=== PATIENT | female | born 1955 | race Caucasian/White ===

== ENCOUNTER 2020-05-11 15:34 | Observation (INO) | payer BC ==
[2020-05-11] MEDS ORDERED: HEPARIN SODIUM,PORCINE 5,000 UNIT/ML 1 ML VIAL IV PRN (15:49)
[2020-05-11] MEDS ORDERED: HEPARIN SODIUM,PORCINE 10,000 UNIT/ML 1 ML VIAL IV ONE (15:49)
--- NOTE | 2020-05-11 16:15 | ED ---
General Adult HPI - General Chief complaint: Shortness of Breath Stated complaint: pulmonary embolism Time Seen by Provider: 05/11/20 15:46 Source: patient Mode of arrival: ambulatory Limitations: no limitations - History of Present Illness Initial comments: Dictation was produced using [employer] dictation software. please excuse any grammatical, word or spelling errors. This patient was cared for during a federal and state declared state of emerg ency secondary to Covid 19 Chief Complaint: 64-year-old female with past medical history of glaucoma presents with instruction from primary care physician come to the emergency department for pulmonary embolus History of Present Illness: 64-year-old female she initially saw her primary c are physician last week. Patient had labs and imaging studies performed. She did get a blood test with positive d-dimer last week. She was started on request an aspirin. She was sent home pending CTA that was done today. Patient finally had the CT angios performed showing bilateral pulmonary emboli. She did receive presented to PCP for shortness of breath. She does not have any history of PEs. She does have any recent extended travel. No history of cancer. Patient states that she feels well at this time. Also found that patient had large hiatal hernia. At rest patient feels well. The ROS documented in this emergency department record has been reviewed and confirmed by me. Those systems with pertinent positive or negative responses have been documented in the HPI. All other systems are other negative and/or noncontributory. PHYSICAL EXAM: General Impression: Alert and oriented x3, not in acute distress HEENT: Normocephalic atraumatic, extra-ocular movements intact, pupils equal and reactive to light bilaterally, mucous membranes moist. Cardiovascular: Heart regular rate and rhythm Chest: Able to complete full sentences, no retractions, no tachypnea Abdomen: abdomen soft, non-tender, non-distended, no organomegaly Musculoskeletal: Pulses present and equal in all extremities, no peripheral edema Motor: no focal deficits noted Neurological: CN II-XII grossly intact, no focal motor or sensory deficits noted Skin: Intact with no visualized rashes Psych: Normal affect and mood ED course: 64-year-old female with recent diagnosis of pulmonary embolus signs upon arrival are within acceptable limits. Patient's old. Bedside. She does not appear dyspneic. Hemodynamically stable. Received a call from Dr. Law who is patient's primary care physician. He requested that patient be admitted. He request that patient get ultrasounds of the bilateral lower extremities, CT of the abdomen and pelvis with contrast for evaluation of carcinoma. He also requests that Dr. Damon be consulted for evaluation hiatal hernia and Dr. Roberto be consulted for assistance with managing pulmonary embolus.Laboratory evaluation obtained. CBC, coag panel, metabolic panel unremarkable. Troponin is negative. Chest x-ray shows right upper lobe lung mass of unclear signific ance or etiology. CT of the abdomen and pelvis shows no suspicious masses. There are scattered small lymph nodes. There is a hypodense area in the mid spleen. Multiple cysts in the liver. Venous Doppler study of the bilateral lower extremities shows no DVTs. Patient will be admitted to the Dr. [place] service. Patient started on heparin. Patient is stable medical condition. EKG interpretation: Ventricular rate 73, normal sinus rhythm, NV interval 124, QRS 78, QTc 453. No NV prolongation, no QTC prolongation, no ST or T-wave changes noted. . Overall, this EKG is unremarkable - Related Data Allergies Allergy/AdvReac Type Severity Reaction Status Date / Time hydromorphone [From Dilaudid] Allergy Rash/Hives Verified 05/11/20 15:38 Penicillins Allergy Rash/Hives Verified 05/11/20 15:38 Sulfa (Sulfonamide Allergy Rash/Hives Verified 05/11/20 15:38 Antibiotics) Review of Systems ROS Statement: Those systems with pertinent positive or pertinent negative responses have been documented in the HPI. ROS Other: All systems not noted in ROS Statement are negative. Past Medical History Additional Past Medical History / Comment(s): wide angle glaucoma History of Any Multi-Drug Resistant Organisms: None Reported Past Surgical History: Orthopedic Surgery Additional Past Surgical History / Comment(s): craniotomy, right facial fract ures, right shoulder repair, left elbow. Smoking Status: Never smoker Past Alcohol Use History: Occasional Past Drug Use History: None Reported General Exam Limitations: no limitations Course Vital Signs 05/11/20 15:39 Temperature 98.2 F Pulse Rate 72 Respiratory 20 Rate Blood Pressure 156/75 O2 Sat by Pulse 98 Oximetry Medical Decision Making - Lab Data Result diagrams: 05/11/20 16:12 05/11/20 16:12 Lab Results 05/11/20 05/11/20 05/11/20 Range/Units 16:12 16:12 16:12 WBC 9.6 (3.8-10.6) k/uL RBC 4.75 (3.80-5.40) m/uL Hgb 13.5 (11.4-16.0) gm/dL Hct 41.3 (34.0-46.0) % MCV 86.9 (80.0-100.0) fL MCH 28.3 (25.0-35.0) pg MCHC 32.6 (31.0-37.0) g/dL RDW 13.5 (11.5-15.5) % Plt Count 287 (150-450) k/uL Neutrophils % 63 % Lymphocytes % 28 % Monocytes % 4 % Eosinophils % 3 % Basophils % 1 % Neutrophils # 6.0 (1.3-7.7) k/uL Lymphocytes # 2.7 (1.0-4.8) k/uL Monocytes # 0.4 (0-1.0) k/uL Eosinophils # 0.3 (0-0.7) k/uL Basophils # 0.1 (0-0.2) k/uL PT 9.4 (9.0-12.0) sec INR 0.9 (<1.2) APTT 24.4 (22.0-30.0) sec Sodium 136 L (137-145) mmol/L Potassium 3.9 (3.5-5.1) mmol/L Chloride 105 (98-107) mmol/L Carbon Dioxide 21 L (22-30) mmol/L Anion Gap 10 mmol/L BUN 13 (7-17) mg/dL Creatinine 0.80 (0.52-1.04) mg/dL Est GFR (CKD-EPI)AfAm >90 (>60 ml/min/1.73 sqM) Est GFR (CKD-EPI)NonAf 78 (>60 ml/min/1.73 sqM) Glucose 94 (74-99) mg/dL Plasma Lactic Acid Jae (0.7-2.0) mmol/L Calcium 9.4 (8.4-10.2) mg/dL Magnesium 2.0 (1.6-2.3) mg/dL Total Bilirubin 0.4 (0.2-1.3) mg/dL AST 28 (14-36) U/L ALT 18 (4-34) U/L Alkaline Phosphatase 110 (38-126) U/L Troponin I (0.000-0.034) ng/mL Total Protein 7.2 (6.3-8.2) g/dL Albumin 4.5 (3.5-5.0) g/dL 05/11/20 05/11/20 Range/Units 16:12 16:12 WBC (3.8-10.6) k/uL RBC (3.80-5.40) m/uL Hgb (11.4-16.0) gm/dL Hct (34.0-46.0) % MCV (80.0-100.0) fL MCH (25.0-35.0) pg MCHC (31.0-37.0) g/dL RDW (11.5-15.5) % Plt Count (150-450) k/uL Neutrophils % % Lymphocytes % % Monocytes % % Eosinophils % % Basophils % % Neutrophils # (1.3-7.7) k/uL Lymphocytes # (1.0-4.8) k/uL Monocytes # (0-1.0) k/uL Eosinophils # (0-0.7) k/uL Basophils # (0-0.2) k/uL PT (9.0-12.0) sec INR (<1.2) APTT (22.0-30.0) sec Sodium (137-145) mmol/L Potassium (3.5-5.1) mmol/L Chloride (98-107) mmol/L Carbon Dioxide (22-30) mmol/L Anion Gap mmol/L BUN (7-17) mg/dL Creatinine (0.52-1.04) mg/dL Est GFR (CKD-EPI)AfAm (>60 ml/min/1.73 sqM) Est GFR (CKD-EPI)NonAf (>60 ml/min/1.73 sqM) Glucose (74-99) mg/dL Plasma Lactic Acid Jae 1.0 (0.7-2.0) mmol/L Calcium (8.4-10.2) mg/dL Magnesium (1.6-2.3) mg/dL Total Bilirubin (0.2-1.3) mg/dL AST (14-36) U/L ALT (4-34) U/L Alkaline Phosphatase (38-126) U/L Troponin I <0.012 (0.000-0.034) ng/mL Total Protein (6.3-8.2) g/dL Albumin (3.5-5.0) g/dL Disposition Clinical Impression: Pulmonary emboli Disposition: ADMITTED IP TO THIS HOSP Condition: Fair Referrals: Leonel Montana MD [Primary Care Provider] - 1-2 days Decision Time: 17:20
[2020-05-11] MEDS: HEPARIN SOD,PORK IN 0.45% NACL 25,000 UNIT in 0.45% NACL 1 250ML.BAG IV SCH (16:17)
[2020-05-11 16:18] LABS: Basophils # (A) 0.1 k/uL (0-0.2); Basophils % (A) 1 %; Eosinophils # (A) 0.3 k/uL (0-0.7); Eosinophils % (A) 3 %; HCT 41.3 % (34.0-46.0); HGB 13.5 gm/dL (11.4-16.0); Lymphocytes # (A) 2.7 k/uL (1.0-4.8); Lymphocytes % (A) 28 %; MCH 28.3 pg (25.0-35.0); MCHC 32.6 g/dL (31.0-37.0); MCV 86.9 fL (80.0-100.0); Mean Platelet Volume 8.6; Monocytes # (A) 0.4 k/uL (0-1.0); Monocytes % (A) 4 %; Neutrophils % (A) 63 %; Platelet Count 287 k/uL (150-450); RBC 4.75 m/uL (3.80-5.40); RDW 13.5 % (11.5-15.5); WBC 9.6 k/uL (3.8-10.6)
[2020-05-11 16:27] LABS: ALT 18 U/L (4-34); AST 28 U/L (14-36); African American GFR (CKD) >90 (>60 ml/min/1.73 sqM); Albumin 4.5 g/dL (3.5-5.0); Alkaline Phosphatase 110 U/L (38-126); Anion Gap 10 mmol/L; Blood Urea Nitrogen 13 mg/dL (7-17); Calcium 9.4 mg/dL (8.4-10.2); Carbon Dioxide 21 mmol/L (22-30); Chloride 105 mmol/L (98-107); Glucose 94 mg/dL (74-99); INR 0.9 (<1.2); Non-African American GFR(CKD) 78 (>60 ml/min/1.73 sqM); Partial Thromboplastin Time 24.4 sec (22.0-30.0); Potassium 3.9 mmol/L (3.5-5.1); Prothrombin Time 9.4 sec (9.0-12.0); Sodium 136 mmol/L (137-145); Total Bilirubin 0.4 mg/dL (0.2-1.3); Total Protein 7.2 g/dL (6.3-8.2)
--- NOTE | 2020-05-11 16:52 | US ---
EXAMINATION TYPE: US venous doppler duplex LE BI DATE OF EXAM: 05/11/2020 4:32 PM COMPARISON: NONE CLINICAL HISTORY: evaluate for DVT. PE SIDE PERFORMED: Bilateral TECHNIQUE: The lower extremity deep venous system is examined utilizing real time linear array sonog airam with graded compression, doppler sonography and color-flow sonography. VESSELS IMAGED: External Iliac Vein (EIV) Common Femoral Vein Deep Femoral Vein Greater Saphenous Vein * Femoral Vein Popliteal Vein Small Saphenous Vein * Proximal Calf Veins (* superficial vessels) There is normal flow, compressibility, vascular waveforms. Right Leg: Negative for DVT Left Leg: Negative for DVT IMPRESSION: No evident deep venous thrombosis at or above the knees.
--- NOTE | 2020-05-11 16:53 | XR ---
EXAMINATION TYPE: XR chest 1V portable DATE OF EXAM: 05/11/2020 COMPARISON: NONE HISTORY: Dyspnea TECHNIQUE: Single frontal view of the chest is obtained. FINDINGS: There is a nodular density in the right upper lobe. No evident pneumothorax or pleural eff usion. There are overlying cardiac leads. Retrocardiac density may represent hiatal hernia. Heart siz e is normal. IMPRESSION: Findings may represent right upper lobe lung mass, correlate to exclude pneumonia, follo w-up is recommended. Probable hiatal hernia, correlate.
--- NOTE | 2020-05-11 17:12 | CT ---
EXAMINATION TYPE: CT abdomen pelvis w con DATE OF EXAM: 05/11/2020 COMPARISON: None INDICATION: Known PE, evaluate for mass/CA DLP: 1394 mGycm, Automated exposure control for dose reduction was used. CONTRAST: 100 mL of Isovue 300. Study performed without Oral Contrast TECHNIQUE: Axial images were obtained from above the diaphragm to the pubic rami in the axial plane a t 5 mm thick sections. Reconstructed images are reviewed on the computer in the coronal plane. FINDINGS: Limited CT sections are obtained the lung bases. The lung bases are clear. There is a large hernia. This includes the entire stomach. This may be paraesophageal. CT ABDOMEN: Liver: There is a cyst on the left lobe liver. A cyst is adjacent to the ligamentum teres. No discret e masses are identified Spleen: There is a focal dense area within the mid spleen. This is more intermediate density measurin g 80 Hounsfield units and may be solid. Metastatic disease is not excluded. Pancreas: Normal Adrenal glands: The adrenal glands are normal. Gallbladder: Normal Kidneys: No masses are evident. No hydronephrosis is present. No cysts are present. Delayed images were obtained through the kidneys, which remain unremarkable. Aorta: Normal Inferior vena cava: Normal. CT PELVIS: Loops of bowel within the abdomen and pelvis are normal. Study is without oral contrast limiting bowel evaluation. Appendix: Not identified. No suspicious inflammatory changes are evident. Urinary bladder: Distended with contrast. Genitourinary structures: Uterus within the left hemipelvis appears normal. Adnexal regions appear un remarkable. Osseous structures: No suspicious lytic or sclerotic lesions. Degenerative disc changes are present L 4-5 and L3-4. L5-S1 degenerative disc changes are present. IMPRESSIONS: 1. No suspicious masses to suggest neoplasm or compression as an etiology for deep venous thrombosis . 2. There are scattered small lymph nodes within the inguinal regions. Back containing right inguinal hernia is present. 3. Hypodense area within the mid spleen is nonspecific but may be a hemangioma. 4. Suspected cysts within the liver. 5. Herniation of the stomach into the posterior thorax. This may be a paraesophageal hernia.
[2020-05-11] MEDS ORDERED: NALOXONE 0.4 MG/ML 1 ML VIAL IV PRN (17:20)
[2020-05-11] MEDS ORDERED: hydrALAZINE HCL 10 MG TAB PO PRN (18:19)
[2020-05-11] MEDS: LATANOPROST 0.005% OPHTH DROPS 2.5 ML BTL BOTH EYES SCH (20:54)
--- NOTE | 2020-05-11 23:19 | P.HPIM ---
History of Present Illness H&P Date: 05/11/20 Chief Complaint: Bilateral pulmonary embolism, dyspnea and shortness of breath, stable cyndie 64-year-old one of my office patient was seen on Monday for few weeks history of significant dyspnea and shortness of breath mostly with exertion associated with mild tightness and pressure in the chest area. Patient ended up having and arrangement for echo stress test on Monday this week as a part of her lab ended up having very elevated d-dimer. Could not make an arrangement for CTA at the time patient agreed to start on anticoagulation awaiting for her CVA on Monday. Result came back positive for bilateral pulmonary embolism with very large hiatal hernia with almost 3/4 of her stomach is above the diaphragmatic. Patient brought to the office and decided to admit patient to the hospital start on anticoagulation IV consult pulmonary further study including bilateral lower extremity Doppler along with CT of the abdomen and pelvis for any major abnormality and possible another CAT scan of the lung look for malignancy. Patient has not had any recent traveling history no exposure to Covid 19 and never had any previous history of blood clot or any coagulation problem. Review of Systems CONSTITUTIONAL: Well-developed no acute respiratory distress. EYES: No icterus sclerae, no conjunctivitis. EARS, NOSE, MOUTH, THROAT, and FACE: No sore throat, lymphadenopathy, carotid bruits or deformity. RESPIRATORY: Positive shortness of breath no chest pain. CARDIOVASCULAR: Positive shortness of breath with exertion mostly with stable angina. GASTROINTESTINAL: Mild abdominal discomfort with worsening heartburn no diarrhea no nausea or vomiting. GENITOURINARY: Negative for Hematuria or UTI, no kidney stones. INTEGUMENT/BREAST: Negative for any muscular injury with mild osteoarthritis.. HEMATOLOGIC/LYMPHATIC: Negative for bleed or purpura. MUSCULOSKELTAL: Negative for Myalgia or arthralgia. NEURLOGICAL: No LOC, Sz or syncope, blurred vision dizziness or abnormality.. BEHAVIORAL/PSYCH: Negative. ENDOCRINE: Negative. Past Medical History Additional Past Medical History / Comment(s): wide angle glaucoma History of Any Multi-Drug Resistant Organisms: None Reported Past Surgical History: Orthopedic Surgery Additional Past Surgical History / Comment(s): craniotomy, right facial fractures, right shoulder repair, left elbow. Smoking Status: Never smoker Past Alcohol Use History: Occasional Past Drug Use History: None Reported Medications and Allergies Home Medications Medication Instructions Recorded Confirmed Type Apixaban [Eliquis] 5 mg PO BID 05/11/20 05/11/20 History Aspirin EC [Ecotrin Low Dose] 81 mg PO DAILY 05/11/20 05/11/20 History Escitalopram [Lexapro] 10 mg PO DAILY 05/11/20 05/11/20 History Travoprost [Travatan Z 0.004%] 1 drop BOTH EYES HS 05/11/20 05/11/20 History Allergies Allergy/AdvReac Type Severity Reaction Status Date / Time hydromorphone [From Dilaudid] Allergy Rash/Hives/Shortness Verified 05/11/20 17:30 of Breath Penicillins Allergy Rash/Hives Verified 05/11/20 17:30 Sulfa (Sulfonamide Allergy Rash/Hives Verified 05/11/20 17:30 Antibiotics) Physical Exam Vitals: Vital Signs Temp Pulse Resp BP Pulse Ox 05/11/20 17:45 72 16 129/85 96 05/11/20 15:39 98.2 F 72 20 156/75 98 Intake and Output 05/11/20 05/11/20 05/11/20 06:59 14:59 22:59 Other: Weight 92.533 kg General Appearance: Alert, cooperative, no distress, appears stated age. Neck HEENT: Supple, no lymphadenopathy, no thyroid enlargement, no carotid bruits. Lungs: Clear to auscultation without crackles or wheezes no rhonchi, no deformity. Chest Wall: Decrease expansion with deep inspiration no tenderness and no deformity was found on exam, no costochondral pain or discomfort. Heart: Regular rate and rhythm, S1, S2 normal, no murmur, rub or gallop. Back: Symmetric, no curvature, ROM normal, no CVA tenderness. Abdomen: Slight midepigastric discomfort no rebound or rigidity no masses. Extremities: Extremities normal, atraumatic, no cyanosis or edema. Pulses: 2+ and symmetric. Skin: Skin color, texture, tugor normal, no rashes or lesions. Neurologic: Alert oriented x3 cranial nerves II through XII intact, no motor deficit, no abnormal balance or gait. Results CBC & Chem 7: 05/11/20 16:12 05/11/20 16:12 Labs: Abnormal Lab Results - Last 24 Hours (Table) 05/11/20 Range/Units 16:12 Sodium 136 L (137-145) mmol/L Carbon Dioxide 21 L (22-30) mmol/L Thrombosis Risk Factor Assmnt - DVT/VTE Prophylaxis DVT/VTE Prophylaxis: Pharmacologic Prophylaxis ordered, Mechanical Prophylaxis ordered - Choose All That Apply Any of the Below Risk Factors Present?: Yes Each Factor Represents 1 point: Obesity (BMI >25) Each Risk Factor Represents 2 Points: Age 61-74 years Thrombosis Risk Factor Assessment Total Risk Factor Score: 3 Thrombosis Risk Factor Assessment Level: Moderate Risk Assessment and Plan Assessment: 1 bilateral pulmonary embolism: Not a clear etiology no sign of clotting factor previous history of PE, will continue patient on heparin drip for now and when decided to switch her to oral medication patient will go back on 10 mg of Eliqui s twice a day up to 2 weeks then 5 mg twice a day thereafter to complete at least 6 month period Further study because of the PE including Doppler of the lower extremity to be done along with for any finding of malignancy. 2 severe dyspnea and shortness of breath: Most likely secondary to bilateral pulmonary embolism, would large hiatal hernia might require further intervention for surgical repair in the future. 3 stable angina: With typical sign and symptoms of exertional tightness discomfort pain and angina patient EKG didn't show major abnormality echocardiogram was order and patient will end up going for stress test when she is more stable. 4 large hiatal hernia: Most of her stomach is above the diaphragmatic will require future intervention in the meanwhile Dr. Damon consult will be appreciated for any recommendation beside having to be on proton pump inhibitor up to twice a day to control her symptoms for now. 5 right upper lobe mass on a chest x-ray was not seen on the CTA recently, patient will be going for CT of the chest without without contrast for better view of the structure of the lungs. 6 wide angle glaucoma: Continue eyedrops as before. 7 chronic depression: Has been on Lexapro 10 mg a day. 8 Covid 19 exam is pending. 9 GI prophylaxis: Patient be continue on pantoprazole daily. 10 DVT prophylaxis: Remain on anticoagulation. CODE STATUS: Full code. Admit patient to inpatient service for more than 2 night stay.
[2020-05-12 04:17] LABS: HCT 37.6 % (34.0-46.0); HGB 12.3 gm/dL (11.4-16.0); MCH 28.7 pg (25.0-35.0); MCHC 32.7 g/dL (31.0-37.0); MCV 87.6 fL (80.0-100.0); Mean Platelet Volume 8.5; Platelet Count 235 k/uL (150-450); RBC 4.29 m/uL (3.80-5.40); RDW 13.6 % (11.5-15.5); WBC 7.4 k/uL (3.8-10.6)
[2020-05-12 05:23] LABS: ALT 14 U/L (4-34); AST 30 U/L (14-36); African American GFR (CKD) >90 (>60 ml/min/1.73 sqM); Albumin 3.7 g/dL (3.5-5.0); Alkaline Phosphatase 91 U/L (38-126); Anion Gap 8 mmol/L; Blood Urea Nitrogen 12 mg/dL (7-17); Calcium 9.1 mg/dL (8.4-10.2); Carbon Dioxide 23 mmol/L (22-30); Chloride 108 mmol/L (98-107); Glucose 92 mg/dL (74-99); Non-African American GFR(CKD) >90 (>60 ml/min/1.73 sqM); Potassium 3.7 mmol/L (3.5-5.1); Sodium 139 mmol/L (137-145); Total Bilirubin 0.3 mg/dL (0.2-1.3); Total Protein 6.2 g/dL (6.3-8.2)
[2020-05-12] MEDS: PANTOPRAZOLE 40 MG TABLET PO SCH (06:37)
--- NOTE | 2020-05-12 09:26 | CT ---
EXAMINATION TYPE: CT chest wo/w con DATE OF EXAM: 05/12/2020 COMPARISON: None HISTORY: 64-year-old female Lung mass TECHNIQUE: Contiguous axial scanning of the chest before and after the administration of 100 mL of Is ovue 300. Coronal/sagittal reconstructions performed. CT DLP: 929.4mGycm. Automatic exposure control utilized for a dose reduction. FINDINGS: Heart normal size without pericardial effusion. Ectatic ascending aorta 3.8 cm. Conventional vessel branching anatomy. 5 mm low right paratracheal lymph node. No thoracic lymphadenopathy by CT size criteria.. 4 mm right lower lobe pulmonary nodule, axial image 37. Focal 3.2 x 2.0 cm mixed consolidative and groundglass opacity within the posterior right upper lobe, axial image 18 and 19. Minimal biapical pleural-parenchymal scarring. Otherwise, no consolidation or pleural effusion. Large hiatal hernia with nearly the entire stomach located in the lower chest. Visualized upper abdomen redemonstrates the 2.9 cm anterior left liver lobe cyst. Some layering sludg e, possible vicariously excreted contrast within the gallbladder. Mottled arterial enhancement of th e spleen. Bones: Moderate degenerative disc disease mid and lower thoracic spine. IMPRESSION: 1. A 3.2 x 2.0 cm mixed groundglass and consolidative opacity posterior right upper lobe. An infectio us/inflammatory focus is possible. Correlate with patient's symptoms. 3 month follow-up CT recommende d to ensure clearance and exclude early neoplasm. 2. Nonspecific 4 mm right lower lobe pulmonary nodule should also be reassessed at follow-up. 3. Large hiatal hernia with nearly the entire stomach located in the lower chest.
--- NOTE | 2020-05-12 10:24 | P.GSCN ---
<Peri Gaona - Last Filed: 05/12/20 10:18> History of Present Illness Consult date: 05/12/20 Reason for Consult: hiatal hernia Requesting physician: Tevin Seth History of present illness: CHIEF COMPLAINT: Hiatal hernia HISTORY OF PRESENT ILLNESS: 64-year-old female whose admitted to the hospital secondary to pulmonary embolus. Patient had a CT performed revealing large hiatal hernia. Hence general surgery consult was placed. Patient examined his friends at bedside. She reports a known history of hiatal hernia for the past few years but states it has never caused her much problems. She does report heartburn over the past few weeks which is abnormal for her and she states she usually does not have heartburn. She does report dysphagia with some types of food. No nausea or vomiting. Vital signs stable. PAST MEDICAL HISTORY: See list. PAST SURGICAL HISTORY: See list. SOCIAL HISTORY: No illicit drug use. REVIEW OF SYSTEMS: CONSTITUTIONAL: Denies fever or chills. HEENT: Denies blurred vision, vision changes, or eye pain. Denies hemoptysis CARDIOVASCULAR: Denies chest pain or pressure. RESPIRATORY: Reports shortness of breath. GASTROINTESTINAL: Refer to HPI for pertinent findings HEMATOLOGIC: Denies bleeding disorders. GENITOURINARY: Denies any blood in urine. SKIN: Denies pruitis. Denies rash. PHYSICAL EXAM: VITAL SIGNS: Reviewed. GENERAL: Well-developed in no acute distress. HEENT: No sclera icterus. Extraocular movements grossly intact. Moist buccal mucosa. Head is atraumatic, normocephalic. ABDOMEN: Soft. Nondistended. Nontender. NEUROLOGIC: Alert and oriented. Cranial nerves II through XII grossly intact. LABORATORY DATA: WBC 7.4. Hemoglobin 12.3. Platelet count 235. IMAGING: CT abdomen and pelvis: No suspicious masses to suggest neoplasm or compression etiology for deep vein thrombosis. Scattered small lymph nodes within the inguinal regions. Hypodense area within the mid spleen is nonspecific but may be hemangioma. Suspected cyst within the liver. Herniation of the stomach into the posterior thorax. This may be a paraesophageal hernia. ASSESSMENT: 1. Hiatal Hernia PLAN: -Continue diet as tolerated -No surgical intervention recommended at this time due to acute PE and required anticoagulation. Patient may follow up with Dr. Damon outpatient. -Dr. Damon will re-evaluate patient this afternoon Nurse practitioner note has been reviewed by physician. Signing provider agrees with the documented findings, assessment, and plan of care. Past Medical History Additional Past Medical History / Comment(s): wide angle glaucoma History of Any Multi-Drug Resistant Organisms: None Reported Past Surgical History: Orthopedic Surgery Additional Past Surgical History / Comment(s): craniotomy, right facial fractures, right shoulder repair, left elbow. Smoking Status: Never smoker Past Alcohol Use History: Occasional Past Drug Use History: None Reported Medications and Allergies Home Medications Medication Instructions Recorded Confirmed Type Apixaban [Eliquis] 5 mg PO BID 05/11/20 05/11/20 History Aspirin EC [Ecotrin Low Dose] 81 mg PO DAILY 05/11/20 05/11/20 History Escitalopram [Lexapro] 10 mg PO DAILY 05/11/20 05/11/20 History Travoprost [Travatan Z 0.004%] 1 drop BOTH EYES HS 05/11/20 05/11/20 History Apixaban [Eliquis Starter Pack 0 mg PO DIRECTED 30 Days #1 pack 05/12/20 Rx (for VTE)] Allergies Allergy/AdvReac Type Severity Reaction Status Date / Time hydromorphone [From Dilaudid] Allergy Rash/Hives/Shortness Verified 05/11/20 17:30 of Breath Penicillins Allergy Rash/Hives Verified 05/11/20 17:30 Sulfa (Sulfonamide Allergy Rash/Hives Verified 05/11/20 17:30 Antibiotics) Surgical - Exam Vital Signs Temp Pulse Resp BP Pulse Ox 98.2 F 72 20 156/75 98 05/11/20 15:39 05/11/20 15:39 05/11/20 15:39 05/11/20 15:39 05/11/20 15:39 Results - Labs 05/12/20 03:55 05/12/20 03:55 Abnormal Lab Results - Last 24 Hours (Table) 05/11/20 05/11/20 05/12/20 Range/Units 16:12 22:37 03:55 APTT 155.1 H* (22.0-30.0) sec Sodium 136 L (137-145) mmol/L Chloride 108 H (98-107) mmol/L Carbon Dioxide 21 L (22-30) mmol/L Total Protein 6.2 L (6.3-8.2) g/dL 05/12/20 Range/Units 03:55 APTT 107.7 H* (22.0-30.0) sec Sodium (137-145) mmol/L Chloride (98-107) mmol/L Carbon Dioxide (22-30) mmol/L Total Protein (6.3-8.2) g/dL Diabetes panel 05/11/20 05/12/20 Range/Units 16:12 03:55 Sodium 136 L 139 (137-145) mmol/L Potassium 3.9 3.7 (3.5-5.1) mmol/L Chloride 105 108 H (98-107) mmol/L Carbon Dioxide 21 L 23 (22-30) mmol/L BUN 13 12 (7-17) mg/dL Creatinine 0.80 0.70 (0.52-1.04) mg/dL Glucose 94 92 (74-99) mg/dL Calcium 9.4 9.1 (8.4-10.2) mg/dL AST 28 30 (14-36) U/L ALT 18 14 (4-34) U/L Alkaline Phosphatase 110 91 (38-126) U/L Total Protein 7.2 6.2 L (6.3-8.2) g/dL Albumin 4.5 3.7 (3.5-5.0) g/dL Calcium panel 05/11/20 05/12/20 Range/Units 16:12 03:55 Calcium 9.4 9.1 (8.4-10.2) mg/dL Albumin 4.5 3.7 (3.5-5.0) g/dL Pituitary panel 05/11/20 05/12/20 Range/Units 16:12 03:55 Sodium 136 L 139 (137-145) mmol/L Potassium 3.9 3.7 (3.5-5.1) mmol/L Chloride 105 108 H (98-107) mmol/L Carbon Dioxide 21 L 23 (22-30) mmol/L BUN 13 12 (7-17) mg/dL Creatinine 0.80 0.70 (0.52-1.04) mg/dL Glucose 94 92 (74-99) mg/dL Calcium 9.4 9.1 (8.4-10.2) mg/dL Adrenal panel 05/11/20 05/12/20 Range/Units 16:12 03:55 Sodium 136 L 139 (137-145) mmol/L Potassium 3.9 3.7 (3.5-5.1) mmol/L Chloride 105 108 H (98-107) mmol/L Carbon Dioxide 21 L 23 (22-30) mmol/L BUN 13 12 (7-17) mg/dL Creatinine 0.80 0.70 (0.52-1.04) mg/dL Glucose 94 92 (74-99) mg/dL Calcium 9.4 9.1 (8.4-10.2) mg/dL Total Bilirubin 0.4 0.3 (0.2-1.3) mg/dL AST 28 30 (14-36) U/L ALT 18 14 (4-34) U/L Alkaline Phosphatase 110 91 (38-126) U/L Total Protein 7.2 6.2 L (6.3-8.2) g/dL Albumin 4.5 3.7 (3.5-5.0) g/dL <Yoel Damon - Last Filed: 05/12/20 13:48> History of Present Illness History of present illness: As above. Patient with dyspnea on exertion. He underwent CAT scan showing bilateral pulmonary embolisms. Patient also with history of large hiatal hernia. Lately he has felt some fullness after eating. No nausea or vomiting. Some heartburn. Questionable dysphagia symptoms at times. Patient says the symptoms are mostly mild. CAT scan reviewed. At least 80% of the stomach present above the diaphragmatic hiatus at this time. Some twisting but no evidence of obstruction or significant volvulus. Patient's son is a gastroe nterologist in [place]. We'll likely reach out to their medical staff to see who is performing the majority of the intrathoracic hiatal hernia repairs at their institution. This can be performed on an elective basis once cleared from pulmonary. Await PET scan later this week. Surgical - Exam Vital Signs Temp Pulse Resp BP Pulse Ox 98.2 F 72 20 156/75 98 05/11/20 15:39 05/11/20 15:39 05/11/20 15:39 05/11/20 15:39 05/11/20 15:39 Results - Labs 05/12/20 03:55 05/12/20 03:55 Abnormal Lab Results - Last 24 Hours (Table) 05/11/20 05/11/20 05/12/20 Range/Units 16:12 22:37 03:55 APTT 155.1 H* (22.0-30.0) sec Sodium 136 L (137-145) mmol/L Chloride 108 H (98-107) mmol/L Carbon Dioxide 21 L (22-30) mmol/L Total Protein 6.2 L (6.3-8.2) g/dL 05/12/20 05/12/20 Range/Units 03:55 11:36 APTT 107.7 H* 63.5 H (22.0-30.0) sec Sodium (137-145) mmol/L Chloride (98-107) mmol/L Carbon Dioxide (22-30) mmol/L Total Protein (6.3-8.2) g/dL Diabetes panel 05/11/20 05/12/20 Range/Units 16:12 03:55 Sodium 136 L 139 (137-145) mmol/L Potassium 3.9 3.7 (3.5-5.1) mmol/L Chloride 105 108 H (98-107) mmol/L Carbon Dioxide 21 L 23 (22-30) mmol/L BUN 13 12 (7-17) mg/dL Creatinine 0.80 0.70 (0.52-1.04) mg/dL Glucose 94 92 (74-99) mg/dL Calcium 9.4 9.1 (8.4-10.2) mg/dL AST 28 30 (14-36) U/L ALT 18 14 (4-34) U/L Alkaline Phosphatase 110 91 (38-126) U/L Total Protein 7.2 6.2 L (6.3-8.2) g/dL Albumin 4.5 3.7 (3.5-5.0) g/dL Calcium panel 05/11/20 05/12/20 Range/Units 16:12 03:55 Calcium 9.4 9.1 (8.4-10.2) mg/dL Albumin 4.5 3.7 (3.5-5.0) g/dL Pituitary panel 05/11/20 05/12/20 Range/Units 16:12 03:55 Sodium 136 L 139 (137-145) mmol/L Potassium 3.9 3.7 (3.5-5.1) mmol/L Chloride 105 108 H (98-107) mmol/L Carbon Dioxide 21 L 23 (22-30) mmol/L BUN 13 12 (7-17) mg/dL Creatinine 0.80 0.70 (0.52-1.04) mg/dL Glucose 94 92 (74-99) mg/dL Calcium 9.4 9.1 (8.4-10.2) mg/dL Adrenal panel 05/11/20 05/12/20 Range/Units 16:12 03:55 Sodium 136 L 139 (137-145) mmol/L Potassium 3.9 3.7 (3.5-5.1) mmol/L Chloride 105 108 H (98-107) mmol/L Carbon Dioxide 21 L 23 (22-30) mmol/L BUN 13 12 (7-17) mg/dL Creatinine 0.80 0.70 (0.52-1.04) mg/dL Glucose 94 92 (74-99) mg/dL Calcium 9.4 9.1 (8.4-10.2) mg/dL Total Bilirubin 0.4 0.3 (0.2-1.3) mg/dL AST 28 30 (14-36) U/L ALT 18 14 (4-34) U/L Alkaline Phosphatase 110 91 (38-126) U/L Total Protein 7.2 6.2 L (6.3-8.2) g/dL Albumin 4.5 3.7 (3.5-5.0) g/dL
[2020-05-12] MEDS: HEPARIN SOD,PORK IN 0.45% NACL 25,000 UNIT in 0.45% NACL 1 250ML.BAG IV SCH (10:47)
[2020-05-12] MEDS: ESCITALOPRAM 10 MG TAB PO SCH (10:47)
[2020-05-12] MEDS: ASPIRIN 81 MG PO SCH (10:48)
--- NOTE | 2020-05-12 11:24 | ECHOF ---
Referral Reason:lvfunction MEASUREMENTS -------- HEIGHT: 172.7 cm WEIGHT: 90.7 kg BP: RVIDd: 2.8 cm (< 3.3) IVSd: 1.1 cm (0.6 - 1.1) LVIDd: 4.5 cm (3.9 - 5.3) LVPWd: 1.2 cm (0.6 - 1.1) IVSs: 1.4 cm LVIDs: 3.6 cm LVPWs: 1.0 cm LA Diam: 4.9 cm (2.7 - 3.8) LAESV Index (A-L): 36.04 ml/m Ao Diam: 2.8 cm (2.0 - 3.7) AV Cusp: 2.0 cm (1.5 - 2.6) LA Diam: 4.6 cm (2.7 - 3.8) MV EXCURSION: 21.171 mm (> 18.000) MV EF SLOPE: 105 mm/s (70 - 150) EPSS: 0.6 cm MV E Sunil: 0.66 m/s MV DecT: 186 ms MV A Sunil: 0.78 m/s MV E/A Ratio: 0.85 RAP: 5.00 mmHg RVSP: 36.87 mmHg FINDINGS -------- Sinus rhythm. This was a technically adequate study. LV size, wall thickness and systolic function are normal, with an EF greater than 55%. The left raiza tricular size is normal. The right ventricle is normal in size. LA is severely dilated >40 ml/m2 The right atrial size is normal. 5.0mg OF Lumason UTLIZED: 2 OR MORE WALL SEGMENTS NOT VISUALIZED. There is mild aortic valve sclerosis. There is no evidence of aortic regurgitation. The mitral valve is normal. Mild mitral regurgitation is present. Mild tricuspid regurgitation present. There is mild pulmonary hypertension. The right ventricular systolic pressure, as measured by Doppler, is 36.87mmHg. The pulmonic valve was not well visualized. There is no pulmonic regurgitation present. The aortic root size is normal. Echo free space represents a pericardial fat pad. CONCLUSIONS -------- 1. LV size, wall thickness and systolic function are normal, with an EF greater than 55%. 2. LA is severely dilated >40 ml/m2 3. 5.0mg OF Lumason UTLIZED: 2 OR MORE WALL SEGMENTS NOT VISUALIZED. 4. There is mild aortic valve sclerosis. 5. Mild mitral regurgitation is present. 6. Mild tricuspid regurgitation present. 7. There is mild pulmonary hypertension. 8. Echo free space represents a pericardial fat pad. PLASTER PATTERN CASTER: Emelyn Moody RDCS
--- NOTE | 2020-05-12 11:31 | P.PN ---
Subjective Progress Note Date: 05/12/20 64-year-old one of my office patient was seen on Monday for few weeks history of significant dyspnea and shortness of breath mostly with exertion associated with mild tightness and pressure in the chest area. Patient ended up having and arrangement for echo stress test on Monday this week as a part of her lab ended up having very elevated d-dimer. Could not make an arrangement for CTA at the time patient agreed to start on anticoagulation awaiting for her CVA on Monday. Result came back positive for bilateral pulmonary embolism with very large hiatal hernia with almost 3/4 of her stomach is above the diaphragmatic. Patient brought to the office and decided to admit patient to the hospital start on anticoagulation IV consult pulmonary further study including bilateral lower extremity Doppler along with CT of the abdomen and pelvis for any major abnormality and possible another CAT scan of the lung look for malignancy. Patient has not had any recent traveling history no exposure to Covid 19 and never had any previous history of blood clot or any coagulation problem. 05/12: CAT scan of the abdomen and pelvis revealed no suspicious masses to suggest neoplasm or compression as an etiology for venous thrombosis. Scattered small lymph nodes within the inguinal regions. Back containing right inguinal hernia is present. Hypodense area within the mid spleen is nonspecific but may be h emangioma. Suspected cysts within the liver. Herniation of the stomach into the posterior thorax. This may be a paraesophageal hernia. Ultrasound of the bilateral lower extremity is negative for DVT. CT of the chest revealed a 3.2 x 2.0 cm mixed groundglass and consolidative opacities posterior right upper lobe. Infectious or inflammatory focus as possible. Correlate with patient's symptoms. Nonspecific 4 mm right lower lobe pulmonary nodule code should also be reassessed. Large hiatal hernia with nearly entire stomach located in the lower chest. Patient has been seen by pulmonary medicine. Patient is currently on a heparin drip and plan to transition back to [facility] at the time of discharge. Patient has been afebrile, heart rate 60, blood pressure 117/68, pulse ox 97% on room air. Repeat lab work is unremarkable. Patient has been evaluated by Dr. Damon regarding hiatal hernia and will follow-up as an outpatient. Review of Systems CONSTITUTIONAL: Well-developed no acute respiratory distress. Denies fevers. Denies chills. EYES: No icterus sclerae, no conjunctivitis. EARS, NOSE, MOUTH, THROAT, and FACE: No sore throat, lymphadenopathy, carotid bruits or deformity. RESPIRATORY: Positive shortness of breath no chest pain. CARDIOVASCULAR: Positive shortness of breath with exertion mostly with stable angina. No shortness of breath at rest. GASTROINTESTINAL: Mild abdominal discomfort with worsening heartburn no diarrhea no nausea or vomiting. GENITOURINARY: Negative for Hematuria or UTI, no kidney stones. INTEGUMENT/BREAST: Negative for any muscular injury with mild osteoarthritis.. HEMATOLOGIC/LYMPHATIC: Negative for bleed or purpura. MUSCULOSKELTAL: Negative for Myalgia or arthralgia. NEURLOGICAL: No LOC, Sz or syncope, blurred vision dizziness or abnormality.. BEHAVIORAL/PSYCH: Negative. ENDOCRINE: Negative. Physical examination General Appearance: Alert, cooperative, no distress, appears stated age. Patient is resting a recliner appears to be in no acute distress. Neck HEENT: Supple, no lymphadenopathy, no thyroid enlargement, no carotid bruits. Lungs: Clear to auscultation without crackles or wheezes no rhonchi, no deformity. Chest Wall: Decrease expansion with deep inspiration no tenderness and no deformity was found on exam, no costochondral pain or discomfort. Heart: Regular rate and rhythm, S1, S2 normal, no murmur, rub or gallop. Back: Symmetric, no curvature, ROM normal, no CVA tenderness. Abdomen: Slight midepigastric discomfort no rebound or rigidity no masses. Extremities: Extremities normal, atraumatic, no cyanosis or edema. Pulses: 2+ and symmetric. Skin: Skin color, texture, tugor normal, no rashes or lesions. Neurologic: Alert oriented x3 cranial nerves II through XII intact, no motor deficit, no abnormal balance or gait. Assessment and Plan 1 bilateral pulmonary embolism: Not a clear etiology no sign of clotting factor previous history of PE, will continue patient on heparin drip for now and when decided to switch her to back on 10 mg of Eliquis twice a day up to 2 weeks then 5 mg twice a day thereafter to complete at least 6 month period. Consult with Dr. Roberto appreciated. 2 severe dyspnea and shortness of breath: Most likely secondary to bilateral pulmonary embolism, would large hiatal hernia might require further intervention for surgical repair in the future. Consult with Dr. Damon appreciated. 3 unstable angina: With typical sign and symptoms of exertional tightness discomfort pain and angina patient EKG didn't show major abnormality echocardiogram report is pending. Plan for stress test when she is more stable. 4 large hiatal hernia: Most of her stomach is above the diaphragmatic will require future intervention in the meanwhile Dr. Damon consult will be appreciated for any recommendation beside having to be on proton pump inhibitor up to twice a day to control her symptoms for now. 5 right upper lobe mass on a chest x-ray. CT of the chest as above. Consult with Dr. Roberto. 6 wide angle glaucoma: Continue eyedrops as before. 7 recurrent depression: Has been on Lexapro 10 mg a day. 8 COVID-19 infection not present. 9 GI prophylaxis: Patient be continue on pantoprazole daily. 10 DVT prophylaxis: Remain on anticoagulation. CODE STATUS: Full code. Discharge plan: Home on Monday Impression and plan of care have been directed as dictated by the signing physi cian. Xiomara Hopper nurse practitioner acting as scribe for signing physician. Objective - Vital Signs Vital signs: Vital Signs Temp 98.0 F 05/12/20 04:00 Pulse 64 05/12/20 04:00 Resp 16 05/12/20 04:00 BP 125/69 05/12/20 04:00 Pulse Ox 96 05/12/20 04:00 Intake & Output 05/11/20 05/12/20 05/12/20 18:59 06:59 18:59 Intake Total 186.362 Output Total 400 Balance -213.638 Weight 92.533 kg 91 kg Intake: Intake, IV Titration 186.362 Amount Heparin Sod,Pork in 0.45% 186.362 NaCl 25,000 unit In 0.45 % NaCl 1 250ml.bag @ 18 UNITS/KG/HR 16.656 mls/hr IV .[id number] RL Rx#: [id number] Output: Urine 400 Other: Voiding Method Toilet # Voids 1 - Labs CBC & Chem 7: 05/12/20 03:55 05/12/20 03:55 Labs: Abnormal Lab Results - Last 24 Hours (Table) 05/11/20 05/11/20 05/12/20 Range/Units 16:12 22:37 03:55 APTT 155.1 H* (22.0-30.0) sec Sodium 136 L (137-145) mmol/L Chloride 108 H (98-107) mmol/L Carbon Dioxide 21 L (22-30) mmol/L Total Protein 6.2 L (6.3-8.2) g/dL 05/12/20 Range/Units 03:55 APTT 107.7 H* (22.0-30.0) sec Sodium (137-145) mmol/L Chloride (98-107) mmol/L Carbon Dioxide (22-30) mmol/L Total Protein (6.3-8.2) g/dL
--- NOTE | 2020-05-12 11:58 | CONS ---
CONSULTATION PULMONARY/CRITICAL CARE CONSULTATION: DATE OF SERVICE: 05/12/2020 REASON FOR CONSULTATION: Pulmonary embolism as well as possible lesion right upper lobe. 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 She apparently presented to Dr. Montana's office with complaints of shortness of breath. Her complaints have been primarily shortness of breath on exertion and some chest discomfort or pain or tightness, which has apparently been present for about a month or so. She did have an episode of acute bronchitis last year. She has no history of any lung disease. The patient had an elevated D-dimer. For that reason, a CT angiogram was ordered over the other hospital and though it showed some motion artifact and apparently the timing of the bolus of dye was not precise, she did have right upper lobe and left upper lobe pulmonary emboli. I did not see the scan, just the report. There was no mention of a lesion in the right upper lobe on the CT angio from [facility]. She was admitted here for IV heparin therapy once the Angio results were discovered. She is currently now on a factor Xa inhibitor. The patient is feeling just fine. She has no really major medical problems. She has a previous craniotomy because of a meningioma and has some glaucoma. Other than that, she denies any lung issues. She is a lifelong nonsmoker. She has had no recent travel or anything like that. A CT scan was ordered here. The chest x-ray here suggested a possible lesion in the right upper lobe. The CT scan shows a ground-glass opacity [id number] lesion in the right upper lobe. It measures 3.2 x 2 cm in size. It appears to be more of an inflammatory infectious lesion, although, because of its semi solid appearance could actually represent a developing adenocarcinoma of the lung. Anyway, the radiologist recommended a followup CT scan in 3 months. I think it is important to go ahead and place her on some antibiotic. I think I am going to order an outpatient PET scan to be done this Monday or Monday. Depending on that, we may proceed with biopsy. If the PET scan is negative, then we can repeat a CT scan in 3 months. MEDICAL HISTORY: Includes wide angle glaucoma and a meningioma. SURGICAL HISTORY: Includes a right shoulder repair, left elbow surgery, some right facial fractures and craniotomy for the meningioma. SOCIAL HISTORY: Significant that she is a lifelong nonsmoker date. She drinks alcohol occasionally. No illicit drug use. HOME MEDICATIONS: Include Eliquis, aspirin, Lexapro, and eyedrops. ALLERGIES: Include DILAUDID, PENICILLIN and SULFA ANTIBIOTICS. REVIEW OF SYSTEMS: CONSTITUTIONAL: Negative. NEUROLOGIC: Negative. HEENT: Negative. CARDIOVASCULAR: Chest tightness. Not really pain per se. PULMONARY: Shortness of breath on exertion. GI: Negative. : Negative. RHEUMATOLOGIC: Negative. IMMUNOLOGIC: Negative. ENDOCRINOLOGIC: Negative. DERMATOLOGIC: Negative. Current vital signs are reviewed. Temperature is 98, heart rate 64, respiratory rate 16, blood pressure 125/69, room air saturation 96%. Appears in no acute distress. There is no conversational dyspnea, use of accessory muscles or audible wheezing. HEENT: Examination is grossly unremarkable. He does have a surgical mask in place. No supplemental oxygen. NECK: Supple full range of motion. No adenopathy. Neck veins are flat. CARDIOVASCULAR: Examination reveals regular rhythm and rate. Heart rate mid 60s. S1, S2 normal. No murmur. LUNGS: Reveal clear breath sounds. No wheezes, rhonchi, or crackles. Breath sounds equal bilaterally. ABDOMEN: Soft, bowel sounds are heard. EXTREMITIES: Intact. No cyanosis, clubbing, or edema. SKIN: Without rash. NEUROLOGIC: Examination is brief but nonfocal. Doppler of the bilateral lower extremities negative. A chest x-ray suggested a slight mass or infiltrate in the right upper lobe. Abdominal, pelvic CT scan showed no suspicious masses to suggest neoplasm or compression as an etiology of DVT, scattered small lymph nodes within the inguinal regions noted. A lesion in the spleen is probably a hemangioma, there was some suspected cyst within the liver, and the patient has a significant paraesophageal hernia on CT scan. CT of the chest suggests a ground-glass or semi solid lesion measuring 3.2 x 2.0 cm in the right upper lobe, which likely reflects an inflammatory/infectious foci or could possibly relate some to an early carcinoma. A CT scan of the chest was recommended in 3 months. There is also a 4 mm right lower lobe pulmonary nodule, which should be also re-evaluated in a period of time. I am less concerned about that lesion. LABORATORY DATA: Essentially within normal range. CBC is good. PT, INR, PTT good. PTT while on heparin is appropriate. Sodium, potassium, chloride, CO2, anion gap, BUN, creatinine. The rest of the comprehensive metabolic profile is all within normal range. COVID-19 was not detected by nasopharyngeal swab. Medications are reviewed. Currently, she is on aspirin, Lexapro, IV heparin, hydralazine, Narcan, Protonix. ASSESSMENT: 1. Bilateral upper lobe pulmonary emboli, seen on the CT angiogram done at [facility]. 2. CT scan done here suggesting a 3.2 x 2.0 cm ground-glass or semi solid lesion in the right upper lobe, which could be inflammatory/infectious or neoplastic. 3. History of meningioma, status post craniotomy. 4. History of wide angle glaucoma. 5. Lifelong nonsmoker. PLAN: I am going to recommend the patient to be placed back on her factor Xa inhibitor. She could be discharged tomorrow. The patient will be scheduled for an outpatient PET scan either Monday or Monday of this week. Finally, I do agree that the patient should have a repeat CT scan in 3 months. The lesion does look more inflammatory infectious, than it does neoplastic. Although, it could be an orally adenocarcinoma given its appearance. I also recommend some oral antibiotics. Additional recommendations and suggestions are forthcoming. Prognosis is good. MMODL / IJN: [id number] /
[2020-05-12] MEDS: LATANOPROST 0.005% OPHTH DROPS 2.5 ML BTL BOTH EYES SCH (20:13)
[2020-05-13 03:20] VITALS: TEMP 98.7
[2020-05-13] MEDS: HEPARIN SOD,PORK IN 0.45% NACL 25,000 UNIT in 0.45% NACL 1 250ML.BAG IV SCH (06:17)
[2020-05-13] MEDS: PANTOPRAZOLE 40 MG TABLET PO SCH (06:18)
[2020-05-13] MEDS: ESCITALOPRAM 10 MG TAB PO SCH (08:16)
[2020-05-13] MEDS: ASPIRIN 81 MG PO SCH (08:16)
[2020-05-13] MEDS ORDERED: ACETAMINOPHEN TAB 325 MG TAB PO PRN ×2 (08:49→09:38)
[2020-05-13] MEDS ORDERED: APIXABAN 5 MG TAB PO SCH ×2 (09:00→09:45)
[2020-05-13] MEDS ORDERED: AZITHROMYCIN 500 MG TAB PO SCH (09:00)
--- NOTE | 2020-05-13 14:48 | PN ---
PROGRESS NOTE PULMONARY/CRITICAL CARE PROGRESS NOTE: DATE OF SERVICE: 05/13/2020 This is a very nice lady that we saw yesterday in consultation. She presented with bilateral upper lobe pulmonary emboli. She also has a history of meningioma status post craniotomy and a history of glaucoma. We are asked to see her because he has a lesion in the right upper lobe. It is semi solid and ground-glass in appearance. Anyway, it could represent an inflammatory/infectious focus or could be neoplastic in nature. We are going to get her set up for outpatient PET scan either Monday or Monday of this week. Pending that, additional recommendations will be made. We will also place her on some antibiotics. She is Dr. Montana's patient. Currently, vital signs are stable. Blood pressure, heart rate, respiratory rate, saturation, temperature are all within normal range. She appears in no acute distress. She is anxious to be discharged home today. HEENT: Examination is grossly unremarkable. NECK: Supple. Full range of motion. No adenopathy. Neck veins are flat. CARDIOVASCULAR: Examination reveals regular rhythm and rate. S1, S2 normal. LUNGS: Reveal clear breath sounds are equal. ABDOMEN: Soft, bowel sounds are heard. EXTREMITIES: Intact. No cyanosis, clubbing, or edema. SKIN: Without rash. NEUROLOGIC: Examination is brief but nonfocal. LABS AND X-RAYS: Reviewed. She has been placed on a factor Xa inhibitor. ASSESSMENT: 1. Bilateral upper lobe pulmonary emboli, of unclear etiology. It could relate to hyperviscosity state secondary to a developing neoplastic process right upper lobe. 2. A 3.2 x 2.0 cm lesion right upper lobe, semi-solid/ground-glass in appearance, could be inflammatory/infectious and/or neoplastic. Patient is going to be set up for an outpatient PET scan. 3. History of meningioma, status post craniotomy. 4. History of glaucoma. PLAN: The patient will have an outpatient PET scan. I will see her in the office. Decision will be made about what to do next. I thought she should be treated with some antibiotics that the lesion in the right upper lobe appears to be inflammatory infectious. Additional recommendations and suggestions are forthcoming. Will follow closely. MMODL / IJN: [id number] /
--- NOTE | 2020-05-13 16:01 | P.CRDCN ---
History of Present Illness Consult date: 05/13/20 History of present illness: This is a 64-year-old female who has been complaining of exertional shortness of breath for the last several weeks. Patient drove from [place] at the end of January. Because of her symptoms of shortness of breat, She had blood test included d-dimer which was reported as abnormal. Patient apparently had a computed tomography scan of further evaluation of her symptoms and abnormal d- dimer, which was reported as showing bilateral pulmonary emboli. Patient was brought in for anti-cognition therapy. Patient had a computed tomography scan of the pelvis and abdomen which did not reveal any evidence of malignancy. Patient was found to have large hiatal hernia with the whole stomach being in the chest. An echo was performed which showed normal LV size and function. Left atrial size was described as a large. Right-sided chamber size were normal. Patient doesn't have any cardiac history. Most of any myocardial infarctions or valvular heart disease. Her valvular function on echocardiogram was normal. At this point patient is reassured. Patient is being discharged home on anti-coagulation therapy. Follow-up in the office in one week Review of Systems As per the chart Past Medical History Additional Past Medical History / Comment(s): wide angle glaucoma History of Any Multi-Drug Resistant Organisms: None Reported Past Surgical History: Orthopedic Surgery Additional Past Surgical History / Comment(s): craniotomy, right facial fractures, right shoulder repair, left elbow. Smoking Status: Never smoker Past Alcohol Use History: Occasional Past Drug Use History: None Reported Medications and Allergies Home Medications Medication Instructions Recorded Confirmed Type Apixaban [Eliquis] 5 mg PO BID 05/11/20 05/11/20 History Aspirin EC [Ecotrin Low Dose] 81 mg PO DAILY 05/11/20 05/11/20 History Escitalopram [Lexapro] 10 mg PO DAILY 05/11/20 05/11/20 History Travoprost [Travatan Z 0.004%] 1 drop BOTH EYES HS 05/11/20 05/11/20 History Apixaban [Eliquis Starter Pack 0 mg PO DIRECTED 30 Days #1 pack 05/12/20 Rx (for VTE)] Allergies Allergy/AdvReac Type Severity Reaction Status Date / Time hydromorphone [From Dilaudid] Allergy Rash/Hives/Shortness Verified 05/11/20 17:30 of Breath Penicillins Allergy Rash/Hives Verified 05/11/20 17:30 Sulfa (Sulfonamide Allergy Rash/Hives Verified 05/11/20 17:30 Antibiotics) Physical Exam Vitals: Vital Signs Temp Pulse Resp BP Pulse Ox 05/13/20 08:13 98.7 F 74 16 120/69 96 05/13/20 03:23 51 L 14 05/13/20 03:17 98.7 F 61 127/58 95 05/13/20 00:00 98.0 F 60 16 114/63 93 L 05/12/20 20:00 97.6 F 57 L 16 142/84 96 05/12/20 16:00 97.6 F 59 L 16 112/68 98 Intake and Output 05/13/20 05/13/20 05/13/20 06:59 14:59 22:59 Intake Total 776.528 619.617 Output Total 375 Balance 401.528 619.617 Intake: IV 20 Invasive Line 1 20 Intake, IV Titration 216.528 19.617 Amount Heparin Sod,Pork in 0.45% 216.528 19.617 NaCl 25,000 unit In 0.45 % NaCl 1 250ml.bag @ 18 UNITS/KG/HR 16.656 mls/hr IV .Q15H1M [facility] Rx#: [id number] Oral 540 600 Output: Urine 375 Other: Voiding Method Toilet # Voids 1 Weight 91.5 kg GENERAL EXAM: Patient is alert and oriented and doesn't appear to be in any acute distress HEENT: Normocephalic. Normal reaction of pupils, equal size, normal range of extraocular motion. No erythema or exudates in the throat. NECK: No masses, no nuchal rigidity. CHEST: No chest wall deformity. LUNGS: Equal air entry with no crackles or wheeze. HEART: S1 and S2 normal with no audible mumurs or gallops. Regular rhythm, femorals equal on both sides.. ABDOMEN: No hepatosplenomegaly, normal bowel sounds, no guarding or rigidity. SKIN: No rashes CENTRAL NERVOUS SYSTEM: No focal deficits. EXTREMITIES: No cyanosis, clubbing or edema. Results 05/12/20 03:55 05/12/20 03:55 Coagulation 05/13/20 Range/Units 06:04 APTT 137.3 H* (22.0-30.0) sec Intake and Output 05/13/20 05/13/20 05/13/20 06:59 14:59 22:59 Intake Total 776.528 619.617 Output Total 375 Balance 401.528 619.617 Intake: IV 20 Invasive Line 1 20 Intake, IV Titration 216.528 19.617 Amount Heparin Sod,Pork in 0.45% 216.528 19.617 NaCl 25,000 unit In 0.45 % NaCl 1 250ml.bag @ 18 UNITS/KG/HR 16.656 mls/hr IV .Q15H1M [facility] Rx#: [id number] Oral 540 600 Output: Urine 375 Other: Voiding Method Toilet # Voids 1 Weight 91.5 kg 05/12/20 03:55 05/12/20 03:55 EKG Interpretations (text) Sinus rhythm Assessment and Plan (1) Left atrial enlargement Status: Acute Code(s): I51.7 - CARDIOMEGALY SNOMED Code(s): 93371430591829 (2) Hiatal hernia Status: Acute Code(s): K44.9 - DIAPHRAGMATIC HERNIA WITHOUT OBSTRUCTION OR GANGRENE SNOMED Code(s): 12002007 (3) Pulmonary emboli Status: Acute Code(s): I26.99 - OTHER PULMONARY EMBOLISM WITHOUT ACUTE COR PULMONALE SNOMED Code(s): 26808634 Plan: Patient will continue current medical therapy.No specific intervention at this time. Follow-up in the office in one week
--- NOTE | 2020-05-13 18:27 | PN ---
PROGRESS NOTE CHIEF COMPLAINT: Hiatal hernia. INTERVAL HISTORY: Patient doing well today. Denies abdominal pain. No significant chest pain or shortness of breath currently. Patient is anxious to go home. She is being prescribed Eliquis upon discharge. Abdomen: Soft, nondistended, nontender. IMPRESSION/PLAN: Muirg[age]ast[age]aur[age]-old female with recent diagnosis of pulmonary embolism. Findings of large hiatal hernia also on CT scan. She and I discussed the options once again. She would like to discuss this further with her son, who is a websphere portal developer out of town. Likely we will initiate further diagnostic studies once cleared by Pulmonary for interventional procedures such as EGD/colonoscopy. The patient will contact my office post discharge. MMODL / IJN: [id number] /
--- NOTE | 2020-05-14 10:39 | P.DS ---
Providers Date of admission: 05/11/20 17:20 Expected date of discharge: 05/13/20 Attending physician: Leonel Montana Consults: 05/11/20 15:48 Consult Physician Routine Consulting Provider: Jose Roberto Consult Reason/Comments: PE Do you want consulting provider notified?: Yes Consult Physician Routine Consulting Provider: Yoel Damon Consult Reason/Comments: hiatal hernia Do you want consulting provider notified?: Yes 05/13/20 08:46 Consult Physician Routine Consulting Provider: Ulices Velasquez Consult Reason/Comments: Dilated LA Do you want consulting provider notified?: Yes Primary care physician: [facility] Course: 64-year-old one of my office patient was seen on Monday for few weeks history of significant dyspnea and shortness of breath mostly with exertion associated with mild tightness and pressure in the chest area. Patient ended up having and arrangement for echo stress test on Monday this week as a part of her lab ended up having very elevated d-dimer. Could not make an arrangement for CTA at the time patient agreed to start on anticoagulation awaiting for her CVA on Monday. Result came back positive for bilateral pulmonary embolism with very large hiatal hernia with almost 3/4 of her stomach is above the diaphragmatic. Patient brought to the office and decided to admit patient to the hospital start on anticoagulation IV consult pulmonary further study including bilateral lower extremity Doppler along with CT of the abdomen and pelvis for any major abnormality and possible another CAT scan of the lung look for malignancy. Patient has not had any recent traveling history no exposure to Covid 19 and never had any previous history of blood clot or any coagulation problem. 05/12: CAT scan of the abdomen and pelvis revealed no suspicious masses to suggest neoplasm or compression as an etiology for venous thrombosis. Scattered small lymph nodes within the inguinal regions. Back containing right inguinal hernia is present. Hypodense area within the mid spleen is nonspecific but may be hemangioma. Suspected cysts within the liver. Herniation of the stomach into the posterior thorax. This may be a paraesophageal hernia. Ultrasound of the bilateral lower extremity is negative for DVT. CT of the chest revealed a 3.2 x 2.0 cm mixed groundglass and consolidative opacities posterior right upper lobe. Infectious or inflammatory focus as possible. Correlate with patient's symptoms. Nonspecific 4 mm right lower lobe pulmonary nodule code should also be reassessed. Large hiatal hernia with nearly entire stomach located in the lower chest. Patient has been seen by pulmonary medicine. Patient is currently on a heparin drip and plan to transition back to eliquis at the time of discharge. Patient has been afebrile, heart rate 60, blood pressure 117/68, pulse ox 97% on room air. Repeat lab work is unremarkable. Patient has been evaluated by Dr. Damon regarding hiatal hernia and will follow-up as an outpatient. 05/13: Patient has met with Dr. Roberto with plan for follow-up as an outpatient. We will send a prescription for azithromycin and Ventolin inhaler to her pharmacy. Patient discussed having a PET scan would like to have this coordinated by Dr. Montana which will be done through the office. Patient had prescription sent for eliquis starter pack yesterday and co-pay is $20, patient case manager provided 10 co-pay card. Patient denies any new complaints. No chest pain. Shortness of breath has improved. Pulse ox is 96% on room air. Patient will be discharged home today in stable condition. Assessment and Plan 1 bilateral pulmonary embolism 2 severe dyspnea and shortness of breath: Most likely secondary to bilateral pulmonary embolism, large hiatal hernia might require further intervention for surgical repair in the future. 3 unstable angina. Plan for stress test when she is more stable. 4 large hiatal hernia 5 right upper lobe mass. 6 wide angle glaucoma. 7 recurrent depression. 8 COVID-19 infection not present. Discharge plan: Home Impression and plan of care have been directed as dictated by the signing physician. Xiomara Hopper nurse practitioner acting as scribe for signing physician. Patient Condition at Discharge: Good Plan - Discharge Summary Discharge Rx Participant: No New Discharge Prescriptions: New Apixaban [Eliquis Starter Pack (for VTE)] 0 mg PO DIRECTED 30 Days #1 pack No Action Apixaban [Eliquis] 5 mg PO BID Aspirin EC [Ecotrin Low Dose] 81 mg PO DAILY Escitalopram [Lexapro] 10 mg PO DAILY Travoprost [Travatan Z 0.004%] 1 drop BOTH EYES HS Discharge Medication List Apixaban [Eliquis] 5 mg PO BID 05/11/20 [History] Aspirin EC [Ecotrin Low Dose] 81 mg PO DAILY 05/11/20 [History] Escitalopram [Lexapro] 10 mg PO DAILY 05/11/20 [History] Travoprost [Travatan Z 0.004%] 1 drop BOTH EYES HS 05/11/20 [History] Apixaban [Eliquis Starter Pack (for VTE)] 0 mg PO DIRECTED 30 Days #1 pack 05/12/20 [Rx] Follow up Appointment(s)/Referral(s): Leonel Montana MD [Primary Care Provider] - 1 Week Jose Roberto DO [Doctor of Osteopathic Medicine] - 1 Week Activity/Diet/Wound Care/Special Instructions: Complete Eliquis starter pack first. Discharge Disposition: HOME SELF-CARE
[2020-05-15 08:12] VITALS: BP 120/69; PULSE 74; RESP 16
== END 2020-05-13 12:45 | disposition home or self-care (01) ==
LOC: EC 15:34 → 3SCARD 17:20 → INTOOBSV 17:20 → 3SCARD 17:39 → UNDODISIN 05-13 12:45
PROVIDERS: ADMIT Internal Medicine Geriatric Medicine; ATTEND Internal Medicine Geriatric Medicine
DX: I26.99 Other pulmonary embolism without acute cor pulmonale (principal); K44.9 Diaphragmatic hernia without obstruction or gangrene; I20.0 Unstable angina; K76.89 Other specified diseases of liver; H40.9 Unspecified glaucoma; K40.90 Unilateral inguinal hernia, without obstruction or gangrene, not specified as recurrent; F33.9 Major depressive disorder, recurrent, unspecified; R13.10 Dysphagia, unspecified; R12 Heartburn; Z20.828 Contact with and (suspected) exposure to other viral communicable diseases; R91.8 Other nonspecific abnormal finding of lung field; I51.7 Cardiomegaly; Z79.01 Long term (current) use of anticoagulants; Z79.82 Long term (current) use of aspirin; Z79.899 Other long term (current) drug therapy; Z88.0 Allergy status to penicillin; Z88.2 Allergy status to sulfonamides; Z88.5 Allergy status to narcotic agent; Z87.81 Personal history of (healed) traumatic fracture; Z86.011 Personal history of benign neoplasm of the brain
CPT/HCPCS: 96366 ×4; 96376; 96365; 99285; 36415; 93005; 93306; 80053 ×2; 83605; 83735; 84484; 85025; 85027; 85610; 85730 ×3; 71045; 93970; 71270; 74177; G0378 ×3; U0003; J1644 ×4; Q9950; Q9967 ×2

== ENCOUNTER 2020-08-03 16:30 | Inpatient (IN) | payer BC ==
[2020-08-03] MEDS ORDERED: ACETAMINOPHEN TAB 500 MG TAB PO STA (18:17)
[2020-08-03] MEDS ORDERED: RX INFO: IV CONTRAST WAS GIVEN 1 EACH MISC MISCELLANE PRN (18:18)
[2020-08-03] MEDS ORDERED: MEROPENEM 1 GM in SODIUM CHLORIDE 0.9% 100 ML IVPB SCH (18:30)
--- NOTE | 2020-08-03 18:30 | ED ---
General Adult HPI - General Chief complaint: Recheck/Abnormal Lab/Rx Stated complaint: SOB, sent by Dr ledesma Time Seen by Provider: 08/03/20 17:47 Source: patient, RN/, RN notes reviewed Mode of arrival: ambulatory Limitations: no limitations - History of Present Illness Initial comments: Patient is a pleasant 64-year-old female presenting to the emergency department with concern for infection to her chest. Patient did have partial lobectomy 10 days ago in [place]. This was secondary to mass right upper lobe. Over the past 2 days patient has had some dyspnea and some pus from the incision. Patient did see her primary care physician, Dr. ledesma today. Patient does have some discomfort in the region however states it is not severe. Patient did have 99.8 temperature yesterday. - Related Data Home Medications Medication Instructions Recorded Confirmed Apixaban [Eliquis] 5 mg PO BID 05/11/20 08/03/20 Aspirin EC [Ecotrin Low Dose] 81 mg PO DAILY 05/11/20 08/03/20 Escitalopram [Lexapro] 10 mg PO DAILY 05/11/20 08/03/20 Travoprost [Travatan Z 0.004%] 1 drop BOTH EYES HS 05/11/20 08/03/20 Acetaminophen Tab [Tylenol Tab] 1,000 mg PO Q6H PRN 08/03/20 08/03/20 Albuterol Inhaler [Ventolin Hfa 2 puff INHALATION RT-Q4H PRN 08/03/20 08/03/20 Inhaler] Diazepam [Valium] 5 mg PO Q6H PRN 08/03/20 08/03/20 Pantoprazole Sodium [Protonix] 40 mg PO DAILY 08/03/20 08/03/20 oxyCODONE HCL [OxyIR] 5 mg PO Q4H PRN 08/03/20 08/03/20 Allergies Allergy/AdvReac Type Severity Reaction Status Date / Time hydromorphone [From Dilaudid] Allergy Rash/Hives/Shortness Verified 08/03/20 19:13 of Breath Penicillins Allergy Rash/Hives Verified 08/03/20 19:13 Sulfa (Sulfonamide Allergy Rash/Hives Verified 08/03/20 19:13 Antibiotics) Review of Systems ROS Statement: Those systems with pertinent positive or pertinent negative responses have been documented in the HPI. ROS Other: All systems not noted in ROS Statement are negative. Constitutional: Reports: as per HPI Eyes: Denies: eye pain ENT: Denies: ear pain Respiratory: Reports: as per HPI Cardiovascular: Reports: as per HPI Endocrine: Denies: fatigue Gastrointestinal: Denies: abdominal pain Genitourinary: Denies: dysuria Musculoskeletal: Denies: back pain Skin: Reports: as per HPI Neurological: Denies: weakness Past Medical History Past Medical History: Cancer Additional Past Medical History / Comment(s): wide angle glaucoma History of Any Multi-Drug Resistant Organisms: None Reported Past Surgical History: Orthopedic Surgery Additional Past Surgical History / Comment(s): craniotomy, right facial fractures, right shoulder repair, left elbow. RUL lobectomy Past Alcohol Use History: Occasional Past Drug Use History: None Reported General Exam Limitations: no limitations General appearance: alert, in no apparent distress Head exam: Present: normocephalic Eye exam: Present: normal appearance Neck exam: Present: normal inspection Respiratory exam: Present: normal lung sounds bilaterally, other (Right lateral chest wall with mild erythema of the incision sites. There is also mild purulent drainage. There is also mild tenderness.). Absent: respiratory distress Cardiovascular Exam: Present: regular rate, normal rhythm GI/Abdominal exam: Present: soft. Absent: tenderness Extremities exam: Present: normal inspection Neurological exam: Present: alert Psychiatric exam: Present: normal affect, normal mood Skin exam: Present: other (Mild erythema near incision sites on the right lateral chest) Course Vital Signs 08/03/20 08/03/20 16:34 20:45 Temperature 97.6 F Pulse Rate 92 79 Respiratory 18 18 Rate Blood Pressure 123/75 106/57 O2 Sat by Pulse 99 97 Oximetry - Reevaluation(s) Reevaluation #1: 08/03/20 20:57 Patient again reevaluated and updated. 08/03/20 20:58 Patient does meet sepsis criteria diagnosed at 2057. Blood culture and lactic acid and IV antibiotics have all been ordered EKG Findings - EKG Comments: EKG Findings:: Normal sinus rhythm 86. MS 112. QRS 76. QT 372. QTC 445. Normal axis. Normal QRS. No acute ST change. Medical Decision Making - Medical Decision Making Case was discussed with Dr. Ledesma.He does request computed tomography scan of the lung as well as blood cultures and patient receive either imipenem or ertapenem and vancomycin. Consults for Dr. james and nikhil - Lab Data Result diagrams: 08/03/20 18:40 08/03/20 18:40 Lab Results 08/03/20 08/03/20 08/03/20 Range/Units 18:40 18:40 18:40 WBC 22.6 H (3.8-10.6) k/uL RBC 4.73 (3.80-5.40) m/uL Hgb 13.2 (11.4-16.0) gm/dL Hct 40.3 (34.0-46.0) % MCV 85.3 (80.0-100.0) fL MCH 28.0 (25.0-35.0) pg MCHC 32.8 (31.0-37.0) g/dL RDW 12.9 (11.5-15.5) % Plt Count 351 (150-450) k/uL Neutrophils % 85 % Lymphocytes % 9 % Monocytes % 5 % Eosinophils % 1 % Basophils % 0 % Neutrophils # 19.1 H (1.3-7.7) k/uL Lymphocytes # 2.1 (1.0-4.8) k/uL Monocytes # 1.0 (0-1.0) k/uL Eosinophils # 0.2 (0-0.7) k/uL Basophils # 0.1 (0-0.2) k/uL PT 9.7 (9.0-12.0) sec INR 0.9 (<1.2) APTT 29.5 (22.0-30.0) sec Sodium 135 L (137-145) mmol/L Potassium 4.3 (3.5-5.1) mmol/L Chloride 103 (98-107) mmol/L Carbon Dioxide 19 L (22-30) mmol/L Anion Gap 13 mmol/L BUN 17 (7-17) mg/dL Creatinine 0.73 (0.52-1.04) mg/dL Est GFR (CKD-EPI)AfAm >90 (>60 ml/min/1.73 sqM) Est GFR (CKD-EPI)NonAf 88 (>60 ml/min/1.73 sqM) Glucose 112 H (74-99) mg/dL Plasma Lactic Acid Jae (0.7-2.0) mmol/L Calcium 9.6 (8.4-10.2) mg/dL Total Bilirubin 1.0 (0.2-1.3) mg/dL AST 48 H (14-36) U/L ALT 58 H (4-34) U/L Alkaline Phosphatase 132 H (38-126) U/L Total Protein 7.4 (6.3-8.2) g/dL Albumin 4.2 (3.5-5.0) g/dL 08/03/20 Range/Units 18:40 WBC (3.8-10.6) k/uL RBC (3.80-5.40) m/uL Hgb (11.4-16.0) gm/dL Hct (34.0-46.0) % MCV (80.0-100.0) fL MCH (25.0-35.0) pg MCHC (31.0-37.0) g/dL RDW (11.5-15.5) % Plt Count (150-450) k/uL Neutrophils % % Lymphocytes % % Monocytes % % Eosinophils % % Basophils % % Neutrophils # (1.3-7.7) k/uL Lymphocytes # (1.0-4.8) k/uL Monocytes # (0-1.0) k/uL Eosinophils # (0-0.7) k/uL Basophils # (0-0.2) k/uL PT (9.0-12.0) sec INR (<1.2) APTT (22.0-30.0) sec Sodium (137-145) mmol/L Potassium (3.5-5.1) mmol/L Chloride (98-107) mmol/L Carbon Dioxide (22-30) mmol/L Anion Gap mmol/L BUN (7-17) mg/dL Creatinine (0.52-1.04) mg/dL Est GFR (CKD-EPI)AfAm (>60 ml/min/1.73 sqM) Est GFR (CKD-EPI)NonAf (>60 ml/min/1.73 sqM) Glucose (74-99) mg/dL Plasma Lactic Acid Jae 1.8 (0.7-2.0) mmol/L Calcium (8.4-10.2) mg/dL Total Bilirubin (0.2-1.3) mg/dL AST (14-36) U/L ALT (4-34) U/L Alkaline Phosphatase (38-126) U/L Total Protein (6.3-8.2) g/dL Albumin (3.5-5.0) g/dL - Radiology Data Radiology results: report reviewed (Computed tomography scan of the chest shows postsurgical changes. No evidence of blood abscess. Mild right effusion. Intr athoracic stomach.) Critical Care Time Critical Care Time: Yes Total Critical Care Time: 32 Disposition Clinical Impression: Cellulitis, Sepsis Disposition: ADMITTED IP TO THIS HOSP Is patient prescribed a controlled substance at d/c from ED?: No Referrals: Leonel Ledesma MD [Primary Care Provider] - 1-2 days Decision Time: 20:58
[2020-08-03 18:56] LABS: Basophils # (A) 0.1 k/uL (0-0.2); Basophils % (A) 0 %; Eosinophils # (A) 0.2 k/uL (0-0.7); Eosinophils % (A) 1 %; HCT 40.3 % (34.0-46.0); HGB 13.2 gm/dL (11.4-16.0); Lymphocytes # (A) 2.1 k/uL (1.0-4.8); Lymphocytes % (A) 9 %; MCHC 32.8 g/dL (31.0-37.0); MCV 85.3 fL (80.0-100.0); Mean Platelet Volume 7.8; Monocytes % (A) 5 %; Neutrophils # (A) 19.1 k/uL (1.3-7.7); Neutrophils % (A) 85 %; Platelet Count 351 k/uL (150-450); RBC 4.73 m/uL (3.80-5.40); RDW 12.9 % (11.5-15.5); WBC 22.6 k/uL (3.8-10.6)
[2020-08-03] MEDS ORDERED: ERTAPENEM 1 GM in SODIUM CHLORIDE 0.9% 50 ML IVPB ONE (19:00)
[2020-08-03 19:12] LABS: INR 0.9 (<1.2); Partial Thromboplastin Time 29.5 sec (22.0-30.0); Prothrombin Time 9.7 sec (9.0-12.0)
[2020-08-03 19:17] LABS: ALT 58 U/L (4-34); AST 48 U/L (14-36); African American GFR (CKD) >90 (>60 ml/min/1.73 sqM); Albumin 4.2 g/dL (3.5-5.0); Alkaline Phosphatase 132 U/L (38-126); Anion Gap 13 mmol/L; Blood Urea Nitrogen 17 mg/dL (7-17); Calcium 9.6 mg/dL (8.4-10.2); Carbon Dioxide 19 mmol/L (22-30); Chloride 103 mmol/L (98-107); Glucose 112 mg/dL (74-99); Non-African American GFR(CKD) 88 (>60 ml/min/1.73 sqM); Potassium 4.3 mmol/L (3.5-5.1); Sodium 135 mmol/L (137-145); Total Protein 7.4 g/dL (6.3-8.2)
--- NOTE | 2020-08-03 20:07 | CT ---
EXAMINATION TYPE: CT chest w con DATE OF EXAM: 08/03/2020 COMPARISON: 05/12/2020 HISTORY: Abscess post partial right lobectomy CT DLP: 446.7 mGycm Automated exposure control for dose reduction was used. CONTRAST: Performed with IV Contrast, patient injected with 100 mL of Isovue 300. Images obtained from the thoracic inlet to the diaphragm with IV contrast. There is mild right pleural effusion. There is large hiatal hernia with intrathoracic stomach. Heart size is normal. There is no pericardial effusion. There is small amount of fluid in the right major a nd minor fissure. There is some atelectasis and infiltrate in the anterior right upper lobe adjacent to the mediastinum. Thoracic spine is intact. Ribs appear intact. There is anterior deviation of the right major fissure. There is 3 cm cyst in the anterior right lobe of the liver. IMPRESSION: Previous surgery with partial resection of the right upper lobe and volume loss with anterior deviati on of the major fissure. No evidence of lung abscess. Mild right pleural effusion increased compared to old exam. There is clearing of the infiltrate in the posterior aspect of the right upper lobe whic h apparently was resected compared to old exam. Intrathoracic stomach.
[2020-08-03] MEDS ORDERED: VANCOMYCIN IV PER PHARMACY 1 EACH MISC MISCELLANE PRN (20:59)
[2020-08-03] MEDS ORDERED: NALOXONE 0.4 MG/ML 1 ML VIAL IV PRN (20:59)
[2020-08-03] MEDS ORDERED: VANCOMYCIN 1,750 MG in SODIUM CHLORIDE 0.9% 500 ML 500 ML IVPB ONE (21:15)
[2020-08-03] MEDS ORDERED: diazePAM 5 MG TAB PO PRN (21:56)
[2020-08-03] MEDS ORDERED: ALBUTEROL NEBULIZED 2.5 MG/3 ML INHALATION PRN (21:56)
[2020-08-03] MEDS ORDERED: ACETAMINOPHEN TAB 500 MG TAB PO PRN (21:56)
[2020-08-03] MEDS: SODIUM CHLORIDE 0.9% 1,000 ML IV SCH (22:33)
[2020-08-03] MEDS: APIXABAN 5 MG TAB PO SCH (22:39)
[2020-08-03] MEDS: LATANOPROST 0.005% OPHTH DROPS 2.5 ML BTL BOTH EYES SCH (23:01)
[2020-08-04 05:10] LABS: Basophils # (A) 0.1 k/uL (0-0.2); Basophils % (A) 0 %; Eosinophils # (A) 0.2 k/uL (0-0.7); Eosinophils % (A) 1 %; HCT 37.9 % (34.0-46.0); HGB 12.4 gm/dL (11.4-16.0); Lymphocytes # (A) 1.7 k/uL (1.0-4.8); Lymphocytes % (A) 11 %; MCH 27.8 pg (25.0-35.0); MCHC 32.6 g/dL (31.0-37.0); MCV 85.2 fL (80.0-100.0); Mean Platelet Volume 8.1; Monocytes # (A) 0.8 k/uL (0-1.0); Monocytes % (A) 5 %; Neutrophils # (A) 12.9 k/uL (1.3-7.7); Neutrophils % (A) 82 %; Platelet Count 242 k/uL (150-450); RBC 4.45 m/uL (3.80-5.40); RDW 12.9 % (11.5-15.5); WBC 15.7 k/uL (3.8-10.6)
--- NOTE | 2020-08-04 07:52 | P.HPIM ---
History of Present Illness H&P Date: 08/03/20 Chief Complaint: Subcutaneous abscess, post right upper lobectomy, history of lung cancer, h 64-year-old female one of my office patient of known very well was hospitalized in 05/11/2020 for acute pulmonary embolism With recurrent chest pain and shortness of breath found to have bilateral pulmonary embolism large happen hernia and right upper lobe small mass under 2 cm. Patient was kept on oral anticoagulation and has been doing well with it. She ended up seen subspeci [facility] in [place] for selective bronchoscopy with biopsy which was positive for adenocarcinoma. She ended up going for the robotic right upper lobe resection 10 days ago at [facility] in [place] did very well with surgery started back on her anticoagulation and has been doing well. Patient developed to have fever or chills hypertension and hypoxia last few days ended up seen in the office after chest x-ray was performed finding consistent with subcutaneous abscess with questionable of Empyema the time with one of her incision site was draining poor possible the time. Patient culture was done and send with her to the emergency department where patient was sent to be admitted. Patient was started on vancomycin and meropenem updraft treatment Tylenol and admitted to the hospital for white blood cell was 22,000 left shift chest x-ray and CAT scan shows mild right pleural effusion with no clear evidence for large mass. Review of Systems CONSTITUTIONAL: Well-developed no acute respiratory distress. EYES: No icterus sclerae, no conjunctivitis. EARS, NOSE, MOUTH, THROAT, and FACE: No sore throat, lymphadenopathy, carotid bruits or deformity. RESPIRATORY: Positive shortness of breath mild cough wheezes. CARDIOVASCULAR: No CP, Palpitation, PND, Orthopnea, or angina. GASTROINTESTINAL: No Abd pain, Nausea or vomiting, no Diarrhea or constipation, No GI Bleed, no distention or masses. GENITOURINARY: Negative for Hematuria or UTI, no kidney stones. INTEGUMENT/BREAST: Negative for any muscular injury with mild osteoarthritis.. HEMATOLOGIC/LYMPHATIC: Negative for bleed or purpura. MUSCULOSKELTAL: Negative for Myalgia or arthralgia. NEURLOGICAL: No LOC, Sz or syncope, blurred vision dizziness or abnormality.. BEHAVIORAL/PSYCH: Negative. ENDOCRINE: Negative. Past Medical History Past Medical History: Cancer Additional Past Medical History / Comment(s): wide angle glaucoma History of Any Multi-Drug Resistant Organisms: None Reported Past Surgical History: Orthopedic Surgery Additional Past Surgical History / Comment(s): craniotomy, right facial fractures, right shoulder repair, left elbow. RUL lobectomy Past Alcohol Use History: Occasional Past Drug Use History: None Reported Medications and Allergies Home Medications Medication Instructions Recorded Confirmed Type Apixaban [Eliquis] 5 mg PO BID 05/11/20 08/03/20 History Aspirin EC [Ecotrin Low Dose] 81 mg PO DAILY 05/11/20 08/03/20 History Escitalopram [Lexapro] 10 mg PO DAILY 05/11/20 08/03/20 History Travoprost [Travatan Z 0.004%] 1 drop BOTH EYES HS 05/11/20 08/03/20 History Acetaminophen Tab [Tylenol Tab] 1,000 mg PO Q6H PRN 08/03/20 08/03/20 History Albuterol Inhaler [Ventolin Hfa 2 puff INHALATION RT-Q4H PRN 08/03/20 08/03/20 History Inhaler] Diazepam [Valium] 5 mg PO Q6H PRN 08/03/20 08/03/20 History Pantoprazole Sodium [Protonix] 40 mg PO DAILY 08/03/20 08/03/20 History oxyCODONE HCL [OxyIR] 5 mg PO Q4H PRN 08/03/20 08/03/20 History Allergies Allergy/AdvReac Type Severity Reaction Status Date / Time hydromorphone [From Dilaudid] Allergy Rash/Hives/Shortness Verified 08/03/20 19:13 of Breath Penicillins Allergy Rash/Hives Verified 08/03/20 19:13 Sulfa (Sulfonamide Allergy Rash/Hives Verified 08/03/20 19:13 Antibiotics) Physical Exam Vitals: Vital Signs Temp Pulse Resp BP Pulse Ox 08/03/20 20:45 79 18 106/57 97 08/03/20 16:34 97.6 F 92 18 123/75 99 Intake and Output 08/03/20 08/03/20 08/03/20 06:59 14:59 22:59 Other: Weight 91.172 kg General Appearance: Alert, cooperative, no distress, appears stated age. Neck HEENT: Supple, no lymphadenopathy, no thyroid enlargement, no carotid bruits. Lungs: Decreased breath sounds especially in the right side compared to the left side positive mild rhonchi no crackles mild expiratory wheezes. Chest Wall: Chest wall in the right side there is a 4 open area 2 of them are still widely open from her surgical intervention one of them is draining purulent smell the 1 did not heal properly and she had significant tenderness and discomfort in the midline with mild possibly drain at the time. Heart: Regular rate and rhythm, S1, S2 normal, no murmur, rub or gallop. Back: Symmetric, no curvature, ROM normal, no CVA tenderness. Abdomen: Soft, non-tender, bowel sounds active all four quadrants, no masses, no organomegaly. Extremities: Extremities normal, atraumatic, no cyanosis or edema. Pulses: 2+ and symmetric. Skin: Skin color, texture, tugor normal, no rashes or lesions. Neurologic: Alert oriented x3 cranial nerves II through XII intact, no motor deficit, no abnormal balance or gait. Results CBC & Chem 7: 08/04/20 04:18 08/03/20 18:40 Labs: Abnormal Lab Results - Last 24 Hours (Table) 08/03/20 08/03/20 Range/Units 18:40 18:40 WBC 22.6 H (3.8-10.6) k/uL Neutrophils # 19.1 H (1.3-7.7) k/uL Sodium 135 L (137-145) mmol/L Carbon Dioxide 19 L (22-30) mmol/L Glucose 112 H (74-99) mg/dL AST 48 H (14-36) U/L ALT 58 H (4-34) U/L Alkaline Phosphatase 132 H (38-126) U/L Thrombosis Risk Factor Assmnt - DVT/VTE Prophylaxis DVT/VTE Prophylaxis: Pharmacologic Prophylaxis ordered, Mechanical Prophylaxis ordered Assessment and Plan Assessment: 1 subcutaneous abscess: Post recent surgery, with her current symptoms patient was started on vancomycin and meropenem, culture was done, blood culture was order as well patient be seen infectious disease and pulmonary we'll continue current antibiotics see if patient can benefit from any further intervention including I@D. 2 recent diagnosis of lung cancer post right upper lobectomy: Patient does not require any further management at this point CT of the chest, x-ray and follow- up with pulmonary will be done regularly. 3 recent history of pulmonary embolism: Most likely was caused as high comorbidity by the lung cancer, patient remain on Eliquis 5 mg twice a day which will be continued for now patient is doing well with no side effect or complication. 4 large hiatal hernia: Patient might need further intervention for it on time in the meanwhile continue PPI. 5 recurrent anginal type chest pain: Again furthermore patient will require probably heart catheter when she is more stable and subtle with cancer management. 6 mild reactive airway: Continue patient on bedtime agonist nebulizer and inhaler. 7 mild depression: Patient is still on SQ talo pram 10 mg daily. 8 wide angle glaucoma: Patient is still on Travatan eyedrops regularly. 9 mild abnormal liver function test: Most likely from the recent surgery on the hypoperfusion, patient had cyst in the liver but no other abnormality continue to watch liver function tests the next few days. 10 hyperglycemia: On diet control management Accu-Chek with sliding scales coverage especially patient needed to be on steroid. 11 DVT prophylaxis: Patient is on Eliquis. 12 GI prophylaxis: Continue patient on pantoprazole 40 mg daily. CODE STATUS: Full code. Admit patient to the inpatient service for more than 2 night stay.
[2020-08-04] MEDS: VANCOMYCIN 1,500 MG in SODIUM CHLORIDE 0.9% 250 ML IVPB SCH ×2 (09:59→20:27)
[2020-08-04] MEDS: PANTOPRAZOLE 40 MG TABLET PO SCH (10:00)
[2020-08-04] MEDS: ASPIRIN 81 MG PO SCH (10:00)
[2020-08-04] MEDS: ESCITALOPRAM 10 MG TAB PO SCH (10:00)
[2020-08-04] MEDS: APIXABAN 5 MG TAB PO SCH ×2 (10:00→20:26)
[2020-08-04] MEDS: SODIUM CHLORIDE 0.9% 1,000 ML IV SCH ×2 (10:01→23:20)
--- NOTE | 2020-08-04 11:46 | P.PN ---
Subjective Progress Note Date: 08/04/20 64-year-old female one of my office patient of known very well was hospitalized in 05/11/2020 for acute pulmonary embolism With recurrent chest pain and shortness of breath found to have bilateral pulmonary embolism large happen hernia and right upper lobe small mass under 2 cm. Patient was kept on oral anticoagulation and has been doing well with it. She ended up seen subspecialist in [place] for selective bronchoscopy with biopsy which was positive for adenocarcinoma. She ended up going for the robotic right upper lobe resection 10 days ago at [facility] in [place] did very well with surgery started back on her anticoagulation and has been doing well. Patient developed to have fever or chills hypertension and hypoxia last few days ended up seen in the office after chest x-ray was performed finding consistent with subcutaneous abscess with questionable of Empyema the time with one of her incision site was draining poor possible the time. Patient culture was done and send with her to the emergency department where patient was sent to be admitted. Patient was started on vancomycin and meropenem updraft treatment Tylenol and admitted to the hospital for white blood cell was 22,000 left shift chest x-ray and CAT scan shows mild right pleural effusion with no clear evidence for large mass. 08/04: patient seen this morning resting in bed. Continues to have moderate pain on the right side controlled with oxycodone. White blood cells down to 15,000 today. vital signs are stable, patient remains afebrile, pulse rate 82, respirations 18, blood pressure 96/53, pulse ox 95% on room air. wound culture preliminary shows few gram-positive cocci, patient currently on vancomycin and Invanz IV and ID on the case. Pulmonary consult as well. Review of Systems CONSTITUTIONAL: Well-developed no acute respiratory distress. EYES: No icterus sclerae, no conjunctivitis. EARS, NOSE, MOUTH, THROAT, and FACE: No sore throat, lymphadenopathy, carotid bruits or deformity. RESPIRATORY: Positive shortness of breath mild cough. CARDIOVASCULAR: No CP, Palpitation, PND, Orthopnea, or angina. GASTROINTESTINAL: No Abd pain, Nausea or vomiting, no Diarrhea or constipation, No GI Bleed, no distention or masses. GENITOURINARY: Negative for Hematuria or UTI, no kidney stones. INTEGUMENT/BREAST: Negative for any muscular injury with mild osteoarthritis.. HEMATOLOGIC/LYMPHATIC: Negative for bleed or purpura. MUSCULOSKELTAL: Negative for Myalgia or arthralgia. NEURLOGICAL: No LOC, Sz or syncope, blurred vision dizziness or abnormality.. BEHAVIORAL/PSYCH: Negative. ENDOCRINE: Negative. physical exam General Appearance: Alert, cooperative, no distress, appears stated age. Neck HEENT: Supple, no lymphadenopathy, no thyroid enlargement, no carotid bruits. Lungs: Decreased breath sounds especially in the right side compared to the left side positive mild rhonchi. no crackles or wheezes. Chest Wall: Chest wall in the right side there is a 4 open area 2 of them are still widely open from her surgical intervention one of them is draining purulent smell the 1 did not heal properly and she had significant tenderness and discomfort in the midline with mild possibly drain at the time. Heart: Regular rate and rhythm, S1, S2 normal, no murmur, rub or gallop. Back: Symmetric, no curvature, ROM normal, no CVA tenderness. Abdomen: Soft, non-tender, bowel sounds active all four quadrants, no masses, no organomegaly. Extremities: Extremities normal, atraumatic, no cyanosis or edema. Pulses: 2+ and symmetric. Skin: Skin color, texture, tugor normal, no rashes or lesions. Neurologic: Alert oriented x3 cranial nerves II through XII intact, no motor deficit, no abnormal balance or gait Objective - Vital Signs Vital signs: Vital Signs Temp 98.5 F 08/04/20 08:00 Pulse 82 08/04/20 08:00 Resp 18 08/04/20 08:00 BP 96/53 08/04/20 08:00 Pulse Ox 95 08/04/20 08:00 Intake & Output 08/03/20 08/04/20 08/04/20 18:59 06:59 18:59 Intake Total 236 Balance 236 Weight 91.172 kg Intake: Oral 236 - Labs CBC & Chem 7: 08/04/20 04:18 08/03/20 18:40 Labs: Abnormal Lab Results - Last 24 Hours (Table) 08/03/20 08/03/20 08/04/20 Range/Units 18:40 18:40 04:18 WBC 22.6 H 15.7 H (3.8-10.6) k/uL Neutrophils # 19.1 H 12.9 H (1.3-7.7) k/uL Sodium 135 L (137-145) mmol/L Carbon Dioxide 19 L (22-30) mmol/L Glucose 112 H (74-99) mg/dL AST 48 H (14-36) U/L ALT 58 H (4-34) U/L Alkaline Phosphatase 132 H (38-126) U/L Microbiology - Last 24 Hours (Table) 08/03/20 18:46 Gram Stain - Preliminary Back Wound Culture - Preliminary Assessment and Plan Assessment: Assessment: 1 subcutaneous abscess: Post recent surgery, with her current symptoms patient was started on vancomycin and Invanz, culture was done, blood culture was order as well patient be seen infectious disease and pulmonary we'll continue current antibiotics see if patient can benefit from any further intervention including I&D. 2 recent diagnosis of lung cancer post right upper lobectomy: Patient does not require any further management at this point CT of the chest, x-ray and follow- up with pulmonary will be done regularly. 3 recent history of pulmonary embolism: Most likely was caused as high comorbidity by the lung cancer, patient remain on Eliquis 5 mg twice a day which will be continued for now patient is doing well with no side effect or complication. 4 large hiatal hernia: Patient might need further intervention for it on time in the meanwhile continue PPI. 5 recurrent anginal type chest pain: Again furthermore patient will require probably heart catheter when she is more stable and subtle with cancer management. 6 mild reactive airway: Continue patient on bedtime agonist nebulizer and inhaler. 7 mild depression: Patient is still on [id number] mg daily. 8 wide angle glaucoma: Patient is still on Travatan eyedrops regularly. 9 mild abnormal liver function test: Most likely from the recent surgery on the hypoperfusion, patient had cyst in the liver but no other abnormality continue to watch liver function tests the next few days. 10 hyperglycemia: On diet control management Accu-Chek with sliding scales coverage especially patient needed to be on steroid. 11 DVT prophylaxis: Patient is on Eliquis. 12 GI prophylaxis: Continue patient on pantoprazole 40 mg daily. CODE STATUS: Full code. Admit patient to the inpatient service for more than 2 night stay. Impression and plan of care have been directed as dictated by the signing physician. Keiko Billings nurse practitioner acting as scribe for signing physician.
[2020-08-04] MEDS: ERTAPENEM 1 GM in SODIUM CHLORIDE 0.9% 50 ML IVPB SCH (17:53)
--- NOTE | 2020-08-04 20:22 | CONS ---
CONSULTATION PULMONARY/CRITICAL CARE CONSULTATION: DATE OF SERVICE: 08/04/2020 This is a 64-year-old female well known to me. I saw her in May here in the hospital. At that time she was admitted with a diagnosis of bilateral upper lobe pulmonary emboli. She was also found at that time to have a 3.2 cm lesion in the right upper lobe. I went ahead and ordered a PET scan. The PET scan was positive. She ended up going to an outside facility, I believe in [place], and ended up having a right upper lobectomy. She also had a lymph node dissection at that time. The pathology was consistent with adenocarcinoma. She states that all her lymph nodes were negative. The patient did well and was discharged home. After her surgery she was restarted back on her blood thinners for her bilateral upper lobe pulmonary emboli. This was maybe about 10 or 11 days ago. More recently, she came in with complaints of what appears to be maybe an infection at the incision site. She complained of some shortness of breath and maybe some drainage or pus from the incision site. She apparently saw her primary care physician yesterday in the office and he sent her over to the emergency room to be evaluated and admitted. She apparently did have an elevated temperature of 99.8. She really currently looks relatively comfortable. She is really denying any significant pain. She is not particularly short of breath. She is not having any fever or chills. The patient actually looks reasonable. I had to look back at my notes from May to remember this patient. HOME MEDICATIONS: Her current home medications include Eliquis, aspirin, Lexapro, eye drops, Tylenol, albuterol inhaler, Valium, Protonix and oxycodone. ALLERGIES: ALLERGIES include DILAUDID, PENICILLIN and SULFA ANTIBIOTICS. MEDICAL HISTORY: Medical history is positive for [id number] lung cancer, right upper lobe, status post right upper lobectomy relatively recently, as well as bilateral upper lobe pulmonary emboli. Other medical concerns include wide angle glaucoma. SURGICAL HISTORY: Surgical history includes craniotomy, right facial fracture surgery, right shoulder repair, left elbow surgery, and the recent right upper lobectomy. SOCIAL HISTORY: Positive for previous tobacco use. She does not smoke currently. She drinks alcohol occasionally. No illicit drug use. FAMILY HISTORY: Noncontributory. Parents were apparently healthy. REVIEW OF SYSTEMS: CONSTITUTIONAL: Fatigue. NEUROLOGIC: Negative. HEENT: Negative. CARDIOVASCULAR: Mild chest discomfort from recent surgery and pus from the incision site. PULMONARY: Shortness of breath, mild. GI: Negative. : Negative. RHEUMATOLOGIC: Negative. IMMUNOLOGIC: Negative. ENDOCRINOLOGIC: Negative. DERMATOLOGIC: Negative. PHYSICAL EXAMINATION: VITAL SIGNS: Current vital signs are reviewed. Temperature is 98.5, heart rate 79, respiratory rate 18, blood pressure 106/57, mean 73, and room-air saturation 97%. GENERAL APPEARANCE: Appears in no acute distress. HEENT: Examination is grossly unremarkable. Mucous membranes are moist. No supplemental oxygen. NECK: Supple. Full range of motion. No adenopathy. Neck veins are flat. CARDIOVASCULAR: Examination reveals regular rhythm and rate. Heart rate 79 beats per minute. S1, S2 normal. LUNGS: Lungs reveal mostly clear breath sounds. A few scattered mild rhonchi. No wheezes or crackles. ABDOMEN: Soft. Bowel sounds are heard. EXTREMITIES. Intact. No edema. SKIN: Without rash. NEUROLOGIC: Neurologic examination is brief but nonfocal. There is tenderness at the incision site. The incision is also covered in bandages. There is some mild erythema. LABS/IMAGING: Reviewed. White count 15.7, down from 22.6. Hemoglobin, hematocrit and platelet count all normal. PT/INR and PTT all normal. Sodium 135, potassium 4.3, chloride 103, CO2 19. Anion gap is 13. BUN and creatinine were 17 and 0.73. AST and ALT were 48 and 58, respectively. Currently microbiology is pending or negative. A chest CT was done. It does show previous surgery with partial resection of the right upper lobe and volume loss with anterior deviation of the major fissure. No evidence of lung abscess. There is a small right-sided pleural effusion and there is a clearing of the infiltrate in the posterior aspect of the right upper lobe, which is where the lesion was that was resected. CURRENT MEDICATIONS: Current medications are reviewed. The patient is currently on Tylenol, albuterol updrafts, Eliquis, aspirin, diazepam, ertapenem, Lexapro, eye drops, Narcan, oxycodone, Protonix, saline IV and vancomycin. ASSESSMENT: 1. Status post recent right upper lobe resection for [id number] lung cancer/adenocarcinoma type, with apparent negative lymph node dissection. 2. Incision site infection, currently on ertapenem and vancomycin. 3. History of wide angle glaucoma. 4. History of recent bilateral upper lobe pulmonary emboli. PLAN: Will follow along. The patient is currently on ertapenem and vancomycin. Pulmonary status is stable. Hemodynamically she is stable. No additional recommendations are made. Will continue to follow. Prognosis is guarded. MMODL / IJN: [id number] /
[2020-08-04] MEDS: LATANOPROST 0.005% OPHTH DROPS 2.5 ML BTL BOTH EYES SCH (20:26)
--- NOTE | 2020-08-04 23:24 | P.CONS ---
History of Present Illness - Reason for Consult Consult date: 08/04/20 Chest wall abscess Requesting physician: Leonel Montana - Chief Complaint Pain and drainage from the chest incision site x few days - History of Present Illness Patient is a 64-year-old female with the recent diagnosis of adenocarcinoma of the lung in this patient who is status post right upper lobectomy and lymph node dissection surgery was done at [facility] on 07/23/2020, patient subsequently discharged home in stable condition patient presented to her primary care physician yesterday with symptoms of drainage from her incision site, she is also complaining of pain incision site more of a dull aching at times sharp intensity is about 6 out of 10 and no radiation drainage was mostly bloody and thick denies any foul-smelling to it,patient did have some chills but denies high-grade fever with this and the patient was evaluated by the primary care physician, she has been admitted hospital with concern for surgical site infection patient did have a CT of the chest which did not show any abscess. Show some pleural effusion though patient did have a culture obtained from the site which is currently showing gram-positive cocci, patient did not have any fever however did have elevated white 22.6 patient will be started on vancomycin as well as infectious disease was consulted for management of antibiotic therapy Review of Systems Positive point has been mentioned in the HPI rest of the systems are negative Past Medical History Past Medical History: Cancer Additional Past Medical History / Comment(s): wide angle glaucoma History of Any Multi-Drug Resistant Organisms: None Reported Past Surgical History: Orthopedic Surgery Additional Past Surgical History / Comment(s): craniotomy, right facial fractures, right shoulder repair, left elbow. RUL lobectomy 07/25/2020 AT [facility] Past Anesthesia/Blood Transfusion Reactions: No Reported Reaction Past Psychological History: No Psychological Hx Reported Smoking Status: Never smoker Past Alcohol Use History: None Reported, Occasional Past Drug Use History: None Reported - Past Family History Father History Unknown: Yes Medications and Allergies Home Medications Medication Instructions Recorded Confirmed Type Apixaban [Eliquis] 5 mg PO BID 05/11/20 08/03/20 History Aspirin EC [Ecotrin Low Dose] 81 mg PO DAILY 05/11/20 08/03/20 History Escitalopram [Lexapro] 10 mg PO DAILY 05/11/20 08/03/20 History Travoprost [Travatan Z 0.004%] 1 drop BOTH EYES HS 05/11/20 08/03/20 History Acetaminophen Tab [Tylenol Tab] 1,000 mg PO Q6H PRN 08/03/20 08/03/20 History Albuterol Inhaler [Ventolin Hfa 2 puff INHALATION RT-Q4H PRN 08/03/20 08/03/20 History Inhaler] Diazepam [Valium] 5 mg PO Q6H PRN 08/03/20 08/03/20 History Pantoprazole Sodium [Protonix] 40 mg PO DAILY 08/03/20 08/03/20 History oxyCODONE HCL [OxyIR] 5 mg PO Q4H PRN 08/03/20 08/03/20 History Allergies Allergy/AdvReac Type Severity Reaction Status Date / Time hydromorphone [From Dilaudid] Allergy Rash/Hives/Shortness Verified 08/03/20 19:13 of Breath Penicillins Allergy Rash/Hives Verified 08/03/20 19:13 Sulfa (Sulfonamide Allergy Rash/Hives Verified 08/03/20 19:13 Antibiotics) Physical Exam Vitals: Vital Signs Temp Pulse Resp BP Pulse Ox 08/04/20 19:29 98.0 F 80 121/73 94 L 08/04/20 16:28 97.8 F 76 18 111/67 96 08/04/20 14:44 98.1 F 79 18 105/60 97 08/04/20 08:00 98.5 F 82 18 96/53 95 Intake and Output 08/04/20 08/04/20 08/05/20 14:59 22:59 06:59 Intake Total 1602 Balance 1602 Intake: Intake, IV Titration 550 Amount Sodium Chloride 0.9% 1, 300 000 ml @ 75 mls/hr IV . [id number] RL Rx#:[id number] Vancomycin 1,500 mg In 250 Sodium Chloride 0.9% 250 ml @ 125 mls/hr IVPB Q12H RL Rx#:[id number] Oral 1052 Other: Voiding Method Toilet # Voids 2 Weight 91.172 kg GENERAL DESCRIPTION: Middle-aged female lying in bed, no distress. No tachypnea or accessory muscle of respiration use. HEENT: Shows Pallor , no scleral icterus. Oral mucous membrane is dry. No pharyngeal erythema or thrush NECK: Trachea central, no thyromegaly. LUNGS: Unlabored breathing. Decreased breath sound at the base and did have evidence of purulent drainage from her incision site. HEART: S1, S2, regular rate and rhythm. No loud murmur ABDOMEN: Soft, no tenderness , guarding or rigidity, no organomegaly EXTREMITIES: No edema of feet. SKIN: No rash, no masses palpable. NEUROLOGICAL: The patient is awake, alert, oriented x3, mood and affect normal. Results CBC & Chem 7: 08/04/20 04:18 08/03/20 18:40 Labs: Abnormal Lab Results - Last 24 Hours (Table) 08/04/20 Range/Units 04:18 WBC 15.7 H (3.8-10.6) k/uL Neutrophils # 12.9 H (1.3-7.7) k/uL Microbiology - Last 24 Hours (Table) 08/03/20 18:40 Blood Culture - Preliminary Blood No Growth after 24 hours 08/03/20 18:46 Gram Stain - Preliminary Back Wound Culture - Preliminary Presumptive MRSA Assessment and Plan Assessment: 1-patient being admitted to the hospital with pain and drainage from a recent chest wall incision after resection of the right upper lobe for adenocarcinoma of the lung will need to cover for gram-positive skin cecilia to be likely pathogen and the Gram stain showing gram-positive cocci 2-Patient with multiple antibiotic ALLERGIES that would limit the number of antibiotic safe to use (1) Surgical site infection Current Visit: Yes Status: Acute Code(s): T81.49XA - INFECTION FOLLOWING A PROCEDURE, OTHER SURGICAL SITE, INIT SNOMED Code(s): 55527624 (2) Abscess or cellulitis of chest wall Current Visit: Yes Status: Acute Code(s): TUN6296 - SNOMED Code(s): 941906081 Plan: 1-Vancomycin pharmacy to dose target trough of 15 while watching kidney function and Vanco trough closely 2-drug protective dressing to the surgical site We will follow on clinical condition and cultures to further adjust medication if needed Thank you for this consultation will follow this patient with you Time with Patient: Greater than 30
[2020-08-05 06:59] LABS: Basophils # (A) 0.1 k/uL (0-0.2); Basophils % (A) 0 %; Eosinophils # (A) 0.4 k/uL (0-0.7); Eosinophils % (A) 3 %; HCT 32.9 % (34.0-46.0); HGB 10.7 gm/dL (11.4-16.0); Lymphocytes # (A) 1.6 k/uL (1.0-4.8); Lymphocytes % (A) 12 %; MCH 27.5 pg (25.0-35.0); MCHC 32.5 g/dL (31.0-37.0); MCV 84.7 fL (80.0-100.0); Mean Platelet Volume 7.8; Monocytes # (A) 0.8 k/uL (0-1.0); Monocytes % (A) 6 %; Neutrophils # (A) 10.3 k/uL (1.3-7.7); Neutrophils % (A) 78 %; Platelet Count 324 k/uL (150-450); RBC 3.88 m/uL (3.80-5.40); WBC 13.3 k/uL (3.8-10.6)
[2020-08-05] MEDS: ESCITALOPRAM 10 MG TAB PO SCH (08:06)
[2020-08-05] MEDS: APIXABAN 5 MG TAB PO SCH ×2 (08:06→21:10)
[2020-08-05] MEDS: PANTOPRAZOLE 40 MG TABLET PO SCH (08:06)
[2020-08-05] MEDS: ASPIRIN 81 MG PO SCH (08:06)
[2020-08-05] MEDS: VANCOMYCIN 1,500 MG in SODIUM CHLORIDE 0.9% 250 ML IVPB SCH ×2 (08:06→21:10)
[2020-08-05 10:25] LABS: African American GFR (CKD) 111.6 (60.0-200.0); Albumin 3.5 g/dL (3.80-4.90); Albumin/Globulin Ratio 2.06 (1.60-3.17); Calcium 8.5 mg/dL (8.7-10.3); Globulin 1.7 g/dL (1.6-3.3); Non-African American GFR(CKD) 96.3 (60.0-200.0); Potassium 3.6 mmol/L (3.5-5.5); Total Bilirubin 0.4 mg/dL (0.3-1.2); Total Protein 5.2 g/dL (6.2-8.2)
--- NOTE | 2020-08-05 12:23 | P.PN ---
Subjective Progress Note Date: 08/05/20 64-year-old female one of my office patient of known very well was hospitalized in 05/11/2020 for acute pulmonary embolism With recurrent chest pain and shortness of breath found to have bilateral pulmonary embolism large happen hernia and right upper lobe small mass under 2 cm. Patient was kept on oral anticoagulation and has been doing well with it. She ended up seen subspecialist in [place] for selective bronchoscopy with biopsy which was positive for adenocarcinoma. She ended up going for the robotic right upper lobe resection 10 days ago at [facility] in [place] did very well with surgery started back on her anticoagulation and has been doing well. Patient developed to have fever or chills hypertension and hypoxia last few days ended up seen in the office after chest x-ray was performed finding consistent with subcutaneous abscess with questionable of Empyema the time with one of her incision site was draining poor possible the time. Patient culture was done and send with her to the emergency department where patient was sent to be admitted. Patient was started on vancomycin and meropenem updraft treatment Tylenol and admitted to the hospital for white blood cell was 22,000 left shift chest x-ray and CAT scan shows mild right pleural effusion with no clear evidence for large mass. 08/04: patient seen this morning resting in bed. Continues to have moderate pain on the right side controlled with oxycodone. White blood cells down to 15,000 today. vital signs are stable, patient remains afebrile, pulse rate 82, respirations 18, blood pressure 96/53, pulse ox 95% on room air. wound culture preliminary shows few gram-positive cocci, patient currently on vancomycin and Invanz IV and ID on the case. Pulmonary consult as well. 08/05: Patient's evaluated at bedside this morning. Purulent drainage continues to drain from right incision sites on back. ID remains on the case and vancomycin and ertapenem IV R continued, will likely need a PICC line for IV a ntibiotics as outpatient. Patient remains afebrile, vital signs are stable. White blood cells are trending down 13.3, hemoglobin 10.7. Wound cultures are preliminary for MRSA, with final reports pending. Review of Systems CONSTITUTIONAL: Well-developed no acute respiratory distress. EYES: No icterus sclerae, no conjunctivitis. EARS, NOSE, MOUTH, THROAT, and FACE: No sore throat, lymphadenopathy, carotid bruits or deformity. RESPIRATORY: Positive shortness of breath mild cough. CARDIOVASCULAR: No CP, Palpitation, PND, Orthopnea, or angina. GASTROINTESTINAL: No Abd pain, Nausea or vomiting, no Diarrhea or constipation, No GI Bleed, no distention or masses. GENITOURINARY: Negative for Hematuria or UTI, no kidney stones. INTEGUMENT/BREAST: Negative for any muscular injury with mild osteoarthritis.. HEMATOLOGIC/LYMPHATIC: Negative for bleed or purpura. MUSCULOSKELTAL: Negative for Myalgia or arthralgia. NEURLOGICAL: No LOC, Sz or syncope, blurred vision dizziness or abnormality.. BEHAVIORAL/PSYCH: Negative. ENDOCRINE: Negative. Physical exam General Appearance: Alert, cooperative, no distress, appears stated age. Neck HEENT: Supple, no lymphadenopathy, no thyroid enlargement, no carotid bruits. Lungs: Decreased breath sounds especially in the right side compared to the left side positive mild rhonchi. no crackles or wheezes. Chest Wall: Chest wall in the right side there is a 4 open area 2 of them are still widely open from her surgical intervention one of them is draining purulent, significant tenderness and discomfor. Heart: Regular rate and rhythm, S1, S2 normal, no murmur, rub or gallop. Back: Symmetric, no curvature, ROM normal, no CVA tenderness. Abdomen: Soft, non-tender, bowel sounds active all four quadrants, no masses, no organomegaly. Extremities: Extremities normal, atraumatic, no cyanosis or edema. Pulses: 2+ and symmetric. Skin: Skin color, texture, tugor normal, no rashes or lesions. Neurologic: Alert oriented x3 cranial nerves II through XII intact, no motor deficit, no abnormal balance or gait Objective - Vital Signs Vital signs: Vital Signs Temp 98.2 F 08/05/20 07:00 Pulse 84 08/05/20 07:00 Resp 18 08/05/20 07:00 BP 103/64 08/05/20 07:00 Pulse Ox 97 08/05/20 07:00 Intake & Output 08/04/20 08/05/20 08/05/20 18:59 06:59 18:59 Intake Total 1602 Balance 1602 Weight 91.172 kg Intake: Intake, IV Titration 550 Amount Sodium Chloride 0.9% 1, 300 000 ml @ 75 mls/hr IV . [id number] [facility] Rx#:[id number] Vancomycin 1,500 mg In 250 Sodium Chloride 0.9% 250 ml @ 125 mls/hr IVPB Q12H [facility] Rx#:[id number] Oral 1052 Other: Voiding Method Toilet Toilet # Voids 2 - Labs CBC & Chem 7: 08/05/20 06:31 08/05/20 06:31 Labs: Abnormal Lab Results - Last 24 Hours (Table) 08/05/20 Range/Units 06:31 WBC 13.3 H (3.8-10.6) k/uL Hgb 10.7 L (11.4-16.0) gm/dL Hct 32.9 L (34.0-46.0) % Neutrophils # 10.3 H (1.3-7.7) k/uL Microbiology - Last 24 Hours (Table) 08/03/20 18:40 Blood Culture - Preliminary Blood No Growth after 24 hours 08/03/20 18:46 Gram Stain - Preliminary Back Wound Culture - Preliminary Presumptive MRSA Assessment and Plan Assessment: Assessment: 1 subcutaneous abscess: Post recent surgery, with her current symptoms patient was started on vancomycin and Invanz, culture was done, preliminary report shows MRSA, blood culture was order as well patient be seen infectious disease and pulmonary we'll continue current antibiotics see if patient can benefit from any further intervention including I&D. 2 recent diagnosis of lung cancer post right upper lobectomy: Patient does not require any further management at this point CT of the chest, x-ray and follow- up with pulmonary will be done regularly. 3 recent history of pulmonary embolism: Most likely was caused as high comorbidity by the lung cancer, patient remain on Eliquis 5 mg twice a day which will be continued for now patient is doing well with no side effect or complication. 4 large hiatal hernia: Patient might need further intervention for it on time in the meanwhile continue PPI. 5 recurrent anginal type chest pain: Again furthermore patient will require probably heart catheter when she is more stable and subtle with cancer management. 6 mild reactive airway: Continue patient on bedtime agonist nebulizer and inhaler. 7 mild depression: Patient is still on [id number] mg daily. 8 wide angle glaucoma: Patient is still on Travatan eyedrops regularly. 9 mild abnormal liver function test: Most likely from the recent surgery on the hypoperfusion, patient had cyst in the liver but no other abnormality continue to watch liver function tests the next few days. 10 hyperglycemia: On diet control management Accu-Chek with sliding scales coverage especially patient needed to be on steroid. 11 DVT prophylaxis: Patient is on Eliquis. 12 GI prophylaxis: Continue patient on pantoprazole 40 mg daily. CODE STATUS: Full code. Admit patient to the inpatient service for more than 2 night stay. Impression and plan of care have been directed as dictated by the signing physician. Keiko Billings nurse practitioner acting as scribe for signing physician.
[2020-08-05] MEDS: SODIUM CHLORIDE 0.9% 1,000 ML IV SCH (14:38)
--- NOTE | 2020-08-05 14:48 | P.PN ---
Subjective Progress Note Date: 08/05/20 Principal diagnosis: Status post recent right upper lobe resection for a non-small cell lung cancer adenocarcinoma, right posterior chest incision site infection This is 64-year-old white female patient with recent diagnosis of right upper lobe non-small cell lung cancer/adenocarcinoma, who underwent right upper lobectomy in [place]. Patient also had lymph node dissection and pathology was positive for adenocarcinoma of the lung. The lymph node with pathology was negative. Patient was also recently hospitalized at this hospital for bilateral upper lobe pulmonary emboli, she was started on Eliquis. She presented to the emergency department on 08/04/2020 with complaints of shortness of breath and some drainage from the right posterior chest incision at the site of recent right upper lobectomy. The incision slightly reddened, not currently draining, she had low-grade fever, denies any significant pain, her breathing seems to be comfortable, no acute distress, no altered mentation. Vital signs have been stable, and CT of the chest with contrast showed no evidence of lung abscess, previous surgery with partial resection of the right upper lobe and volume loss with anterior deviation of the major fissure, mild right pleural effusion. With that cell count was 22.6 on admission, hemoglobin was 13.2, sodium is 135, CO2 was 19, the prostate exquisitely renal profile were unremarkable. Asthma lactic acid is 1.8, liver enzymes were elevated, with AST of 48, ALT of 58, and alkaline phosphatase of 132. Patient was started on empiric antibiotics in the form of ertapenem and vancomycin. Right chest incision wound culture is showing presumptive MRSA, blood culture show no growth. Patient is feeling better today, with cell count is trending down, down to 13.3 and 50 mg, hemoglobin is 10.7, hemodynamically patient is stable. No worsening dyspnea, no fever or chills, patient is on room air, with pulse ox of 97% Objective - Vital Signs Vital signs: Vital Signs Temp 98.2 F 08/05/20 07:00 Pulse 84 08/05/20 07:00 Resp 18 08/05/20 07:00 BP 103/64 08/05/20 07:00 Pulse Ox 97 08/05/20 07:00 Intake & Output 08/04/20 08/05/20 08/05/20 18:59 06:59 18:59 Intake Total 1602 Balance 1602 Weight 91.172 kg Intake: Intake, IV Titration 550 Amount Sodium Chloride 0.9% 1, 300 000 ml @ 75 mls/hr IV . [id number] RL Rx#:[id number] Vancomycin 1,500 mg In 250 Sodium Chloride 0.9% 250 ml @ 125 mls/hr IVPB Q12H RL Rx#:[id number] Oral 1052 Other: Voiding Method Toilet Toilet # Voids 2 - Exam GENERAL EXAM: Alert, very pleasant, 64-year-old white female, on room air, with a pulse ox of 98% comfortable in no apparent distress. HEAD: Normocephalic/atraumatic. EYES: Normal reaction of pupils, equal size. Conjunctiva pink, sclera white. NOSE: Clear with pink turbinates. THROAT: No erythema or exudates. NECK: No masses, no JVD, no thyroid enlargement, no adenopathy. CHEST: No chest wall deformity. Symmetrical expansion. Right posterior chest incision slightly reddened, not currently draining LUNGS: Equal air entry with no crackles, wheeze, rhonchi or dullness. CVS: Regular rate and rhythm, normal S1 and S2, no gallops, no murmurs, no rubs ABDOMEN: Soft, nontender. No hepatosplenomegaly, normal bowel sounds, no guar ding or rigidity. EXTREMITIES: No clubbing, no edema, no cyanosis, 2+ pulses and upper and lower extremities. MUSCULOSKELETAL: Muscle strength and tone normal. SPINE: No scoliosis or deformity SKIN: No rashes CENTRAL NERVOUS SYSTEM: Alert and oriented -3. No focal deficits, tone is normal in all 4 extremities. PSYCHIATRIC: Alert and oriented -3. Appropriate affect. Intact judgment and insight. - Labs CBC & Chem 7: 08/05/20 06:31 08/05/20 06:31 Labs: Abnormal Lab Results - Last 24 Hours (Table) 08/05/20 08/05/20 Range/Units 06:31 06:31 WBC 13.3 H (3.8-10.6) k/uL Hgb 10.7 L (11.4-16.0) gm/dL Hct 32.9 L (34.0-46.0) % Neutrophils # 10.3 H (1.3-7.7) k/uL BUN 6.0 L (9.0-27.0) mg/dL BUN/Creatinine Ratio 10.00 L (12.00-20.00) Ratio Calcium 8.5 L (8.7-10.3) mg/dL AST 52 H (13-35) U/L ALT 69 H (8-44) U/L Alkaline Phosphatase 131 H (41-126) U/L Total Protein 5.2 L (6.2-8.2) g/dL Albumin 3.50 L (3.80-4.90) g/dL Microbiology - Last 24 Hours (Table) 08/03/20 18:40 Blood Culture - Preliminary Blood No Growth after 24 hours 08/03/20 18:46 Gram Stain - Preliminary Back Wound Culture - Preliminary Presumptive MRSA Assessment and Plan Plan: Assessment: #1. Incisional site infection on the right posterior chest at the site of most recent right upper lobectomy, with wound cultures positive for presumptive MRSA, currently on ertapenem and vancomycin #2. Recent diagnosis of right upper lobe non-small cell lung cancer/adenocarcinoma, status post right upper lobectomy with pathology positive for adenocarcinoma, and lymph node dissection with negative pathology #3. Recent history of bilateral upper lobe pulmonary emboli, patient is on Eliquis #4. History of wide angle glaucoma #5. Lifetime nonsmoker Plan: Continue antibiotics per ID service recommendations, awaiting final cultures of the wound culture, which is showing presumptive staph, current antibiotic coverage includes ertapenem and vancomycin, patient has been afebrile, hemo dynamically patient is stable, no worsening dyspnea, continue oral anticoagulation for in view of recent history of bilateral pulmonary emboli. Patient denies any specific complaints, increase activity as tolerated. I performed a history & physical examination of the patient and discussed their management with my nurse practitioner, Malathi Hooper. I reviewed the nurse practitioner's note and agree with the documented findings and plan of care. Lung sounds are positive for diminished breath sounds. The findings and the impression was discussed with the patient. I attest to the documentation by the nurse practitioner. Time with Patient: Less than 30
[2020-08-05] MEDS: ERTAPENEM 1 GM in SODIUM CHLORIDE 0.9% 50 ML IVPB SCH (17:07)
[2020-08-05] MEDS ORDERED: VANCOMYCIN TROUGH DUE 1 EACH MISC MISCELLANE ONE (20:00)
[2020-08-05] MEDS: LATANOPROST 0.005% OPHTH DROPS 2.5 ML BTL BOTH EYES SCH (21:10)
--- NOTE | 2020-08-06 02:46 | PN ---
PROGRESS NOTE DATE OF SERVICE: 08/05/2020 REASON FOR FOLLOWUP: Chest wall incision cellulitis and abscess. INTERVAL HISTORY: The patient is currently afebrile. The patient is feeling better. Breathing comfortably. Overall, drainage from the chest incision slightly decreased. No nausea, no vomiting. No abdominal pain, no diarrhea. PHYSICAL EXAMINATION: Blood pressure 105/67 with a pulse of 80, temperature 98.1. She is 100% on room air. General description is a middle-aged female up in the room in no distress. RESPIRATORY SYSTEM: Unlabored breathing, decreased breath sounds in the bases. No wheeze. HEART: S1, S2. Regular rate and rhythm. ABDOMEN: Soft. No tenderness. LABS: Hemoglobin is 10.7, white count 13.3, creatinine 0.6. Vancomycin trough is low. Blood culture negative. Local culture with MRSA. DIAGNOSTIC IMPRESSION AND PLAN: Patient with an methicillin-resistant Staphylococcus aureus chest wall incision infection and subcutaneous abscess. No evidence of any deep abscess on the basis of CT. She will continue with vancomycin. Will get a PICC line and arrange for at least 2 weeks of IV vancomycin in the outpatient setting. Plan of care was discussed with the admitting physician. MMODL / IJN: [id number] /
[2020-08-06] MEDS: SODIUM CHLORIDE 0.9% 1,000 ML IV SCH ×2 (04:19→18:09)
[2020-08-06] MEDS: VANCOMYCIN 1,000 MG in SODIUM CHLORIDE 0.9% 250 ML IVPB SCH ×3 (04:19→21:09)
--- NOTE | 2020-08-06 09:46 | CDI ---
Documentation Clarification Form Date: 08/06/2020 09:11:37 AM From: Enma Garcia RN, CCDS Admit Date: 08/04/2020 02:00:00 PM Patient Name: Alexia Berrios Visit Number: [id number] ATTENTION: The Clinical Documentation Specialists (CDI) and [facility] Coding Staff appreciate your assistance in clarifying documentation. Please respond to the clarification below the line at the bottom and electronically sign. The CDI & [facility] Coding staff will review the response and follow-up if needed. Please note: Queries are made part of the Legal Health Record. If you have any questions, please contact the author of this message via ITS. Dr. Leonel Montana A diagnosis of sepsis is documented in the EC. Please confirm or rule out. History/Risk Factors: recent lung cancer with right upper lobectomy Clinical Indicators: 08/04 ED Note: "Reevaluation(s) : 08/03/20 20:58 Patient does meet sepsis criteria diagnosed at 2057. Clinical Impression: Cellulitis, Sepsis ." 08/03 H&P: "subcutaneous abscess: Post recent surgery, with her current symptoms patient was started on vancomycin and meropenem, culture was done, blood culture was order as well patient be seen infectious disease and pulmonary we'll continue current antibiotics see if patient can benefit from any further intervention including ID." 08/03-08/05 WBC 22.6/15.7/13.3 08/03-08/05 Neutrophils 19.1/12.9/10.3 08/03 Lactic acid: 1.8 08/03 Wound CX back: +MRSA 08/03 Blood cultures: negative x 1 Admission 08/03/2020 Vitals signs on admission: temp 97.6, HR 92, RR 18, B/P 123/75, Spo2 99% RA Treatment: 08/04 ID Consult:patient being admitted to the hospital with pain and drainage from a recent chest wall incision after resection of the right upper lobe for adenocarcinoma of the lung will need to cover for gram-positive skin cecliia to be likely pathogen and the Gram stain showing gram-positive cocci. Abscess or cellulitis of chest wall " Antibiotics:Ertapenem 1 gm IVP QD, Iv Vanco PTD 0.9%NS @ 75 cc/hr In your professional opinion, please clarify if these findings signify one of the following conditions, whether the condition is POA, and cause, if known: Condition xxSepsis ruled out Sepsis (please specify organism if know) Severe Sepsis Septic Shock Other, please specify Unable to determine Present on Admission Yes xx No Identify the (suspected) organism Link or clarify if there is associated (due to/with): Organ failure Shock SIRS Criteria (2 or more of the following may indicate SIRS): -Temperature < 96.8F (36C) or > 101.0F (38.3C) -Heart Rate > 90 bpm -Respiratory Rate > 20 breaths/min or PaCO2 < 32 mmHg -White Blood Cell Count > 12,000 or < 4,000 cells/mm3 or > 10% bands -Lactate >2.0 mmol/L (>4.0 is equivalent to septic shock) (Last Revision: February 2018) MTDD
[2020-08-06] MEDS: PANTOPRAZOLE 40 MG TABLET PO SCH (09:47)
[2020-08-06] MEDS: APIXABAN 5 MG TAB PO SCH ×2 (09:47→21:04)
[2020-08-06] MEDS: ESCITALOPRAM 10 MG TAB PO SCH (09:47)
[2020-08-06] MEDS: ASPIRIN 81 MG PO SCH (09:47)
--- NOTE | 2020-08-06 09:48 | P.PN ---
Subjective Progress Note Date: 08/06/20 64-year-old female one of my office patient of known very well was hospitalized in 05/11/2020 for acute pulmonary embolism With recurrent chest pain and shortness of breath found to have bilateral pulmonary embolism large happen hernia and right upper lobe small mass under 2 cm. Patient was kept on oral anticoagulation and has been doing well with it. She ended up seen subspecialist in [place] for selective bronchoscopy with biopsy which was positive for adenocarcinoma. She ended up going for the robotic right upper lobe resection 10 days ago at [facility] in [place] did very well with surgery started back on her anticoagulation and has been doing well. Patient developed to have fever or chills hypertension and hypoxia last few days ended up seen in the office after chest x-ray was performed finding consistent with subcutaneous abscess with questionable of Empyema the time with one of her incision site was draining poor possible the time. Patient culture was done and send with her to the emergency department where patient was sent to be admitted. Patient was started on vancomycin and meropenem updraft treatment Tylenol and admitted to the hospital for white blood cell was 22,000 left shift chest x-ray and CAT scan shows mild right pleural effusion with no clear evidence for large mass. 08/04: patient seen this morning resting in bed. Continues to have moderate pain on the right side controlled with oxycodone. White blood cells down to 15,000 today. vital signs are stable, patient remains afebrile, pulse rate 82, respirations 18, blood pressure 96/53, pulse ox 95% on room air. wound culture preliminary shows few gram-positive cocci, patient currently on vancomycin and Invanz IV and ID on the case. Pulmonary consult as well. 08/05: Patient's evaluated at bedside this morning. Purulent drainage continues to drain from right incision sites on back. ID remains on the case and vancomycin and ertapenem IV R continued, will likely need a PICC line for IV a ntibiotics as outpatient. Patient remains afebrile, vital signs are stable. White blood cells are trending down 13.3, hemoglobin 10.7. Wound cultures are preliminary for MRSA, with final reports pending. 08/06: Patient evaluated resting in bed. Purulent drainage noted to right incision dressing approximately 10 mL. Patient remains on Vanco and ertapenem IV, final cultures back we'll await for IDs recommendations whether patient can go home on oral or needs IV antibiotics as outpatient. Vital signs remained stable, patient is afebrile 98.0, pulse rate 63, blood pressure 96/60, pulse ox 95% on room air. Plan for discharge home possibly tomorrow depending on IDs recommendations. Review of Systems CONSTITUTIONAL: Well-developed no acute respiratory distress. EYES: No icterus sclerae, no conjunctivitis. EARS, NOSE, MOUTH, THROAT, and FACE: No sore throat, lymphadenopathy, carotid bruits or deformity. RESPIRATORY: Positive shortness of breath with activity, mild cough. CARDIOVASCULAR: No CP, Palpitation, PND, Orthopnea, or angina. GASTROINTESTINAL: No Abd pain, Nausea or vomiting, no Diarrhea or constipation, No GI Bleed, no distention or masses. GENITOURINARY: Negative for Hematuria or UTI, no kidney stones. INTEGUMENT/BREAST: Negative for any muscular injury with mild osteoarthritis.. HEMATOLOGIC/LYMPHATIC: Negative for bleed or purpura. MUSCULOSKELTAL: Negative for Myalgia or arthralgia. NEURLOGICAL: No LOC, Sz or syncope, blurred vision dizziness or abnormality.. BEHAVIORAL/PSYCH: Negative. ENDOCRINE: Negative. Physical exam General Appearance: Alert, cooperative, no distress, appears stated age. Neck HEENT: Supple, no lymphadenopathy, no thyroid enlargement, no carotid bruits. Lungs: Improved aeration with no crackles or wheezing or rhonchi. Chest Wall: Chest wall in the right side there is a 4 open area 2 of them are still widely open from her surgical intervention one of them is draining purulent, mild tenderness and discomfort. Heart: Regular rate and rhythm, S1, S2 normal, no murmur, rub or gallop. Back: Symmetric, no curvature, ROM normal, no CVA tenderness. Abdomen: Soft, non-tender, bowel sounds active all four quadrants, no masses, no organomegaly. Extremities: Extremities normal, atraumatic, no cyanosis or edema. Pulses: 2+ and symmetric. Skin: Skin color, texture, tugor normal, no rashes or lesions. Neurologic: Alert oriented x3 cranial nerves II through XII intact, no motor deficit, no abnormal balance or gait Objective - Vital Signs Vital signs: Vital Signs Temp 98.0 F 08/06/20 07:25 Pulse 63 08/06/20 07:25 Resp 16 08/06/20 07:25 BP 96/60 08/06/20 07:25 Pulse Ox 95 08/06/20 07:25 Intake & Output 08/05/20 08/06/20 08/06/20 18:59 06:59 18:59 Intake Total 180 Balance 180 Intake: Oral 180 Other: # Voids 2 - Labs CBC & Chem 7: 08/05/20 06:31 08/05/20 06:31 Labs: Abnormal Lab Results - Last 24 Hours (Table) 08/05/20 Range/Units 06:31 BUN 6.0 L (9.0-27.0) mg/dL BUN/Creatinine Ratio 10.00 L (12.00-20.00) Ratio Calcium 8.5 L (8.7-10.3) mg/dL AST 52 H (13-35) U/L ALT 69 H (8-44) U/L Alkaline Phosphatase 131 H (41-126) U/L Total Protein 5.2 L (6.2-8.2) g/dL Albumin 3.50 L (3.80-4.90) g/dL Microbiology - Last 24 Hours (Table) 08/03/20 18:40 Blood Culture - Preliminary Blood No Growth after 48 hours 08/03/20 18:46 Gram Stain - Final Back Wound Culture - Final Methicillin resist S. aureus Assessment and Plan Assessment: Assessment: 1 subcutaneous abscess: Post recent surgery, with her current symptoms patient was started on vancomycin and Invanz, culture was done, final report shows MRSA, patient seen infectious disease and pulmonary we'll continue current antibiotics, and we IDs recommendations for outpatient antibiotics. 2 recent diagnosis of lung cancer post right upper lobectomy: Patient does not require any further management at this point CT of the chest, x-ray and follow- up with pulmonary will be done regularly. 3 recent history of pulmonary embolism: Most likely was caused as high comorbidity by the lung cancer, patient remain on Eliquis 5 mg twice a day which will be continued for now patient is doing well with no side effect or complication. 4 large hiatal hernia: Patient might need further intervention for it on time in the meanwhile continue PPI. 5 recurrent anginal type chest pain: Again furthermore patient will require probably heart catheter when she is more stable and subtle with cancer management. 6 mild reactive airway: Continue patient on bedtime agonist nebulizer and inhaler. 7 mild depression: Patient is still on [id number] mg daily. 8 wide angle glaucoma: Patient is still on Travatan eyedrops regularly. 9 mild abnormal liver function test: Most likely from the recent surgery on the hypoperfusion, patient had cyst in the liver but no other abnormality continue to watch liver function tests the next few days. 10 hyperglycemia: On diet control management Accu-Chek with sliding scales coverage especially patient needed to be on steroid. 11 DVT prophylaxis: Patient is on Eliquis. 12 GI prophylaxis: Continue patient on pantoprazole 40 mg daily. CODE STATUS: Full code. Admit patient to the inpatient service for more than 2 night stay. Discharge plan: Possibly home tomorrow depending on IDs recommendations. Impression and plan of care have been directed as dictated by the signing physician. Keiko Billings nurse practitioner acting as scribe for signing physician.
[2020-08-06] MEDS: VANCOMYCIN 1,500 MG in SODIUM CHLORIDE 0.9% 250 ML IVPB SCH (13:03)
--- NOTE | 2020-08-06 14:25 | P.PN ---
Subjective Progress Note Date: 08/06/20 Principal diagnosis: Status post recent right upper lobe resection for a non-small cell lung cancer adenocarcinoma, right posterior chest incision site infection This is 64-year-old white female patient with recent diagnosis of right upper lobe non-small cell lung cancer/adenocarcinoma, who underwent right upper lobectomy in [place]. Patient also had lymph node dissection and pathology was positive for adenocarcinoma of the lung. The lymph node with pathology was negative. Patient was also recently hospitalized at this hospital for bilateral upper lobe pulmonary emboli, she was started on Eliquis. She presented to the emergency department on 08/04/2020 with complaints of shortness of breath and some drainage from the right posterior chest incision at the site of recent right upper lobectomy. The incision slightly reddened, not currently draining, she had low-grade fever, denies any significant pain, her breathing seems to be comfortable, no acute distress, no altered mentation. Vital signs have been stable, and CT of the chest with contrast showed no evidence of lung abscess, previous surgery with partial resection of the right upper lobe and volume loss with anterior deviation of the major fissure, mild right pleural effusion. With that cell count was 22.6 on admission, hemoglobin was 13.2, sodium is 135, CO2 was 19, the prostate exquisitely renal profile were unremarkable. Asthma lactic acid is 1.8, liver enzymes were elevated, with AST of 48, ALT of 58, and alkaline phosphatase of 132. Patient was started on empiric antibiotics in the form of ertapenem and vancomycin. Right chest incision wound culture is showing presumptive MRSA, blood culture show no growth. Patient is feeling better today, with cell count is trending down, down to 13.3 and 50 mg, hemoglobin is 10.7, hemodynamically patient is stable. No worsening dyspnea, no fever or chills, patient is on room air, with pulse ox of 97% On 08/06/2020 patient seen in follow-up on the general medical surgical floor. She is awake and alert, in no acute distress, no difficulty breathing, lung sounds are clear, patient is on room air pulse ox of 95-100%, hemodynamically s table, afebrile. No cough or congestion, no pulmonary complaints, patient is on vancomycin for evidence of MRSA in the wound cultures from the surgical incision on the right posterior chest. No new labs, no cough or congestion, she continues on oral anticoagulation for recent history of pulmonary embolisms, no chest pain. Tolerating ambulation. Patient is awaiting placement of PICC line for IV antibiotics after discharge Objective - Vital Signs Vital signs: Vital Signs Temp 98.0 F 08/06/20 07:25 Pulse 63 08/06/20 07:25 Resp 16 08/06/20 07:25 BP 96/60 08/06/20 07:25 Pulse Ox 95 08/06/20 07:25 Intake & Output 08/05/20 08/06/20 08/06/20 18:59 06:59 18:59 Intake Total 360 Balance 360 Intake: Oral 360 Other: # Voids 2 - Exam GENERAL EXAM: Alert, very pleasant, 64-year-old white female, on room air, with a pulse ox of 98% comfortable in no apparent distress. HEAD: Normocephalic/atraumatic. EYES: Normal reaction of pupils, equal size. Conjunctiva pink, sclera white. NOSE: Clear with pink turbinates. THROAT: No erythema or exudates. NECK: No masses, no JVD, no thyroid enlargement, no adenopathy. CHEST: No chest wall deformity. Symmetrical expansion. Right posterior chest incision slightly reddened, not currently draining LUNGS: Equal air entry with no crackles, wheeze, rhonchi or dullness. CVS: Regular rate and rhythm, normal S1 and S2, no gallops, no murmurs, no rubs ABDOMEN: Soft, nontender. No hepatosplenomegaly, normal bowel sounds, no guarding or rigidity. EXTREMITIES: No clubbing, no edema, no cyanosis, 2+ pulses and upper and lower extremities. MUSCULOSKELETAL: Muscle strength and tone normal. SPINE: No scoliosis or deformity SKIN: No rashes CENTRAL NERVOUS SYSTEM: Alert and oriented -3. No focal deficits, tone is normal in all 4 extremities. PSYCHIATRIC: Alert and oriented -3. Appropriate affect. Intact judgment and insight. - Labs CBC & Chem 7: 08/05/20 06:31 08/05/20 06:31 Labs: Microbiology - Last 24 Hours (Table) 08/03/20 18:40 Blood Culture - Preliminary Blood No Growth after 48 hours 08/03/20 18:46 Gram Stain - Final Back Wound Culture - Final Methicillin resist S. aureus Assessment and Plan Plan: Assessment: #1. Incisional site infection on the right posterior chest at the site of most recent right upper lobectomy, with wound cultures positive for presumptive MRSA, currently on ertapenem and vancomycin #2. Recent diagnosis of right upper lobe non-small cell lung cancer/adenocarcinoma, status post right upper lobectomy with pathology positive for adenocarcinoma, and lymph node dissection with negative pathology #3. Recent history of bilateral upper lobe pulmonary emboli, patient is on Eliquis #4. History of wide angle glaucoma #5. Lifetime nonsmoker Plan: Continue antibiotics per ID service recommendations, patient is currently on ertapenem and vancomycin, for MRSA in the postsurgical right posterior chest incision, hemodynamics are stable, no fever or chills, doing well, no pulmonary complaints, continue with oral anticoagulation for recent history of pulmonary embolism, awaiting placement of PICC line, possible discharge home in next 24 hours I performed a history & physical examination of the patient and discussed their management with my nurse practitioner, Malathi Hooper. I reviewed the nurse practitioner's note and agree with the documented findings and plan of care. Lung sounds are positive for diminished breath sounds. The findings and the impression was discussed with the patient. I attest to the documentation by the nurse practitioner. Time with Patient: Less than 30
[2020-08-06] MEDS: ERTAPENEM 1 GM in SODIUM CHLORIDE 0.9% 50 ML IVPB SCH (18:08)
[2020-08-06] MEDS: LATANOPROST 0.005% OPHTH DROPS 2.5 ML BTL BOTH EYES SCH (21:08)
--- NOTE | 2020-08-07 04:22 | PN ---
PROGRESS NOTE DATE OF SERVICE: 08/06/2020 REASON FOR FOLLOWUP: Chest wall MRSA infection. INTERVAL HISTORY: The patient is currently afebrile. Patient is breathing comfortably. Denies having any chest pain or shortness of breath. Overall drainage has slightly decreased. No nausea, no vomiting. No abdominal pain, no diarrhea. PHYSICAL EXAMINATION: Blood pressure 129/81 with a pulse of 70, temperature 97.9. She is 99% on room air. General description is a middle-aged female up in the bed in no distress. RESPIRATORY SYSTEM: Unlabored breathing, decreased breath sounds at the bases. Overall drainage has decreased from the incision site and the redness improved. ABDOMEN: Soft, no tenderness. LABS: No new labs have been obtained today. Blood culture has been negative. DIAGNOSTIC IMPRESSION AND PLAN: Patient with MRSA chest wall wound infection with spontaneous drainage. CT did not show any drainable abscess. Patient is covered with vancomycin. She will get a PICC line tomorrow with a plan for 2-week course of IV vancomycin and close outpatient followup. MMODL / IJN: [id number] /
[2020-08-07] MEDS: VANCOMYCIN 1,000 MG in SODIUM CHLORIDE 0.9% 250 ML IVPB SCH ×2 (05:33→12:31)
[2020-08-07] MEDS: SODIUM CHLORIDE 0.9% 1,000 ML IV SCH (05:33)
[2020-08-07] MEDS: APIXABAN 5 MG TAB PO SCH (06:38)
[2020-08-07 07:42] LABS: HCT 32.3 % (34.0-46.0); HGB 10.4 gm/dL (11.4-16.0); MCH 27.4 pg (25.0-35.0); MCHC 32.4 g/dL (31.0-37.0); MCV 84.5 fL (80.0-100.0); Mean Platelet Volume 7.5; Platelet Count 370 k/uL (150-450); RBC 3.82 m/uL (3.80-5.40); RDW 12.8 % (11.5-15.5); WBC 8.4 k/uL (3.8-10.6)
[2020-08-07] MEDS: ASPIRIN 81 MG PO SCH (09:28)
[2020-08-07] MEDS: PANTOPRAZOLE 40 MG TABLET PO SCH (09:35)
[2020-08-07] MEDS: ESCITALOPRAM 10 MG TAB PO SCH (09:35)
--- NOTE | 2020-08-07 09:55 | P.DS ---
Providers Date of admission: 08/04/20 14:00 Expected date of discharge: 08/07/20 Attending physician: Leonel Montana Consults: 08/03/20 21:00 Consult Physician Routine Consulting Provider: Pauly Joiner Consult Reason/Comments: Sepsis, post lobectomy Do you want consulting provider notified?: Yes Consult Physician Urgent Consulting Provider: Jose Roberto Consult Reason/Comments: Sepsis, post lobectomy Do you want consulting provider notified?: Yes Primary care physician: Leonel Montana Hospital Course: 64-year-old female one of my office patient of known very well was hospitalized in 05/11/2020 for acute pulmonary embolism With recurrent chest pain and shortness of breath found to have bilateral pulmonary embolism large happen hernia and right upper lobe small mass under 2 cm. Patient was kept on oral anticoagulation and has been doing well with it. She ended up seen subspecialist in [place] for selective bronchoscopy with biopsy which was positive for adenocarcinoma. She ended up going for the robotic right upper lobe resection 10 days ago at [facility] in [place] did very well with surgery started back on her anticoagulation and has been doing well. Patient developed to have fever or chills hypertension and hypoxia last few days ended up seen in the office after chest x-ray was performed finding consistent with subcutaneous abscess with questionable of Empyema the time with one of her incision site was draining poor possible the time. Patient culture was done and send with her to the emergency department where patient was sent to be admitted. Patient was started on vancomycin and meropenem updraft treatment Tylenol and admitted to the hospital for white blood cell was 22,000 left shift chest x-ray and CAT scan shows mild right pleural effusion with no clear evidence for large mass. 08/04: patient seen this morning resting in bed. Continues to have moderate pain on the right side controlled with oxycodone. White blood cells down to 15,000 today. vital signs are stable, patient remains afebrile, pulse rate 82, respirations 18, blood pressure 96/53, pulse ox 95% on room air. wound culture preliminary shows few gram-positive cocci, patient currently on vancomycin and Invanz IV and ID on the case. Pulmonary consult as well. 08/05: Patient's evaluated at bedside this morning. Purulent drainage continues to drain from right incision sites on back. ID remains on the case and vancomycin and ertapenem IV R continued, will likely need a PICC line for IV antibiotics as outpatient. Patient remains afebrile, vital signs are stable. White blood cells are trending down 13.3, hemoglobin 10.7. Wound cultures are preliminary for MRSA, with final reports pending. 08/06: Patient evaluated resting in bed. Purulent drainage noted to right incision dressing approximately 10 mL. Patient remains on Vanco and ertapenem IV, final cultures back we'll await for IDs recommendations whether patient can go home on oral or needs IV antibiotics as outpatient. Vital signs remained stable, patient is afebrile 98.0, pulse rate 63, blood pressure 96/60, pulse ox 95% on room air. Plan for discharge home possibly tomorrow depending on IDs recommendations. 08/07: Patient seen this morning sitting in bedside chair, is doing well. White blood cells down to 8000 today hemoglobin 10.4., Vital signs are stable patient remains afebrile. Plan for today to be discharged home after PICC line insertion and will be on IV Vanco per Dr. Hurd's recommendations. Discharge Diagnosis 1 subcutaneous abscess: 2 recent diagnosis of lung cancer post right upper lobectomy: 3 recent history of pulmonary embolism: 4 large hiatal hernia: 5 recurrent anginal type chest pain: 6 mild reactive airway: 7 mild depression: 8 wide angle glaucoma: 9 mild abnormal liver function test: 10 hyperglycemia: Patient Condition at Discharge: Good Plan - Discharge Summary Discharge Rx Participant: Yes New Discharge Prescriptions: Continue Apixaban [Eliquis] 5 mg PO BID Aspirin EC [Ecotrin Low Dose] 81 mg PO DAILY Escitalopram [Lexapro] 10 mg PO DAILY Travoprost [Travatan Z 0.004%] 1 drop BOTH EYES HS Pantoprazole Sodium [Protonix] 40 mg PO DAILY Albuterol Inhaler [Ventolin Hfa Inhaler] 2 puff INHALATION RT-Q4H PRN PRN Reason: Shortness Of Breath Acetaminophen Tab [Tylenol] 1,000 mg PO Q6H PRN PRN Reason: Pain oxyCODONE HCL [OxyIR] 5 mg PO Q4H PRN PRN Reason: Severe Pain Diazepam [Valium] 5 mg PO Q6H PRN PRN Reason: Muscle Spasm Discharge Medication List Apixaban [Eliquis] 5 mg PO BID 05/11/20 [History] Aspirin EC [Ecotrin Low Dose] 81 mg PO DAILY 05/11/20 [History] Escitalopram [Lexapro] 10 mg PO DAILY 05/11/20 [History] Travoprost [Travatan Z 0.004%] 1 drop BOTH EYES HS 05/11/20 [History] Acetaminophen Tab [Tylenol] 1,000 mg PO Q6H PRN 08/03/20 [History] Albuterol Inhaler [Ventolin Hfa Inhaler] 2 puff INHALATION RT-Q4H PRN 08/03/20 [History] Diazepam [Valium] 5 mg PO Q6H PRN 08/03/20 [History] Pantoprazole Sodium [Protonix] 40 mg PO DAILY 08/03/20 [History] oxyCODONE HCL [OxyIR] 5 mg PO Q4H PRN 08/03/20 [History] Follow up Appointment(s)/Referral(s): Leonel Montana MD [Primary Care Provider] - 1-2 days [facility], [NON-STAFF] - As Needed [facility] [NON-STAFF] - As Needed ([facility] will deliver to home today) Discharge Disposition: HOME WITH HOME HEALTH SERVICES
[2020-08-07] MEDS ORDERED: LIDOCAINE 1% INJ 10MG/ML (20 ML MDV) SQ ONE (11:10)
[2020-08-07 11:30] LABS: INR <0.90 (0.90-1.11); Prothrombin Time <9.9 sec (9.9-11.9)
[2020-08-07 11:45] LABS: African American GFR (CKD) 111.6 (60.0-200.0); Albumin 3.3 g/dL (3.80-4.90); Albumin/Globulin Ratio 1.94 (1.60-3.17); Anion Gap 7.8 mmol/L (4.00-12.00); Calcium 8.6 mg/dL (8.7-10.3); Carbon Dioxide 23.2 mmol/L (21.6-31.8); Globulin 1.7 g/dL (1.6-3.3); Non-African American GFR(CKD) 96.3 (60.0-200.0); Total Bilirubin 0.2 mg/dL (0.2-1.2)
[2020-08-07] MEDS ORDERED: VANCOMYCIN TROUGH DUE 1 EACH MISC MISCELLANE ONE (12:00)
--- NOTE | 2020-08-07 12:04 | IR ---
EXAMINATION TYPE: IR cvc insert >=5 years DATE OF EXAM: 08/07/2020 COMPARISON: NONE CLINICAL HISTORY: Infection Needs long-term intravenous access for antibiotics. PROCEDURE: Hand hygiene obtained with soap and water and alcohol-based hand rub. After informed consent, the skin overlying the left basilic vein was localized with ultrasound and no shelby to be compressible and patent. An ultrasound image was obtained and submitted on the patient's c orellana. The overlying skin was prepped and draped and Lidocaine was used for local anesthesia. A skin phoebe was made with a scalpel. Access was gained to the vein under ultrasound guidance with a 21 gau ge needle and a 0.018 inch wire was advanced. Access site was dilated with Peel-Away sheath and cath eter tailored to the appropriate length and advanced such that the distal tip is at the cavoatrial ju nction. Spot image was obtained verifying placement. Catheter was fixed to the skin and a sterile d ressing was placed following hemostasis. Catheter was aspirated and flushed with saline. Patient wa s discharged in stable condition without complication. Maximal barrier technique is utilized. Ultras ound image is documented on the chart. Ultrasound used with sterile technique. Fluoro time and fluoroscopic images submitted to document procedure: 83 intraoperative images, 0.4 mi nutes fluoroscopy time IMPRESSION: STATUS POST ULTRASOUND AND FLUOROSCOPIC GUIDED PICC LINE PLACEMENT, READY FOR USE. THIS PROCEDURE WAS PERFORMED BY THE UNDERSIGNED.
[2020-08-07 14:45] VITALS: BP 123/72; PULSE 85; RESP 17; TEMP 98.4
--- NOTE | 2020-08-07 18:32 | PN ---
PROGRESS NOTE DATE OF SERVICE: 08/07/2020 REASON FOR FOLLOWUP: MRSA, right chest wall surgical site infection. INTERVAL HISTORY: The patient is currently afebrile. The patient was seen on early this afternoon. The patient was feeling better, breathing comfortably. Overall pain and discomfort to the right lower chest wall has improved. No further drainage. No nausea, no vomiting. No abdominal pain or diarrhea. PHYSICAL EXAMINATION: Blood pressure 133/72 with a pulse of 85, temperature 98.4. She is 97% on room air. General description is a middle-aged female up in the bed in no distress. RESPIRATORY SYSTEM: Unlabored breathing with decreased breath sounds at the base. No wheeze. HEART: S1, S2. Regular rate and rhythm. ABDOMEN: Soft. No tenderness. Right chest wall wound is currently dressed. No obvious drainage on the dressing. Overall drainage has decreased. LABS: Hemoglobin is 10.4, white count 8.4. Creatinine is 0.6. Vancomycin level is 15.9. DIAGNOSTIC IMPRESSION AND PLAN: Patient with right chest wall surgical site infection with spontaneous drainage. Culture positive for MRSA. Blood culture negative. She did get a PICC line. Continue with vancomycin, Pharmacy to dose, for 2 weeks and close outpatient followup. MMODL / IJN: [id number] /
== END 2020-08-07 15:44 | disposition home health service (06) | DRG 863 ==
LOC: EC 16:30 → 4SSUR 21:01 → OBSVTOIN 08-04 14:00 → 4SSUR 08-04 15:52
PROVIDERS: ADMIT Internal Medicine Geriatric Medicine; ATTEND Internal Medicine Geriatric Medicine
PROC: 02HV33Z Insertion of Infusion Device into Superior Vena Cava, Percutaneous Approach (ICD-10-PCS; principal; 2020-08-07 08:30)
DX: T81.41XA Infection following a procedure, superficial incisional surgical site, initial encounter (principal); C34.11 Malignant neoplasm of upper lobe, right bronchus or lung; L02.213 Cutaneous abscess of chest wall; L03.313 Cellulitis of chest wall; J90 Pleural effusion, not elsewhere classified; K76.89 Other specified diseases of liver; B95.62 Methicillin resistant Staphylococcus aureus infection as the cause of diseases classified elsewhere; F32.9 Major depressive disorder, single episode, unspecified; J45.909 Unspecified asthma, uncomplicated; I20.9 Angina pectoris, unspecified; I10 Essential (primary) hypertension; R73.9 Hyperglycemia, unspecified; H40.89 Other specified glaucoma; R09.02 Hypoxemia; R94.5 Abnormal results of liver function studies; K44.9 Diaphragmatic hernia without obstruction or gangrene; Z79.01 Long term (current) use of anticoagulants; Z79.82 Long term (current) use of aspirin; Z79.899 Other long term (current) drug therapy; Z87.891 Personal history of nicotine dependence; Z86.711 Personal history of pulmonary embolism; Z87.81 Personal history of (healed) traumatic fracture; Z87.39 Personal history of other diseases of the musculoskeletal system and connective tissue; Z90.2 Acquired absence of lung [part of]; Z98.890 Other specified postprocedural states; Z88.5 Allergy status to narcotic agent; Z88.0 Allergy status to penicillin; Z88.2 Allergy status to sulfonamides; Y83.6 Removal of other organ (partial) (total) as the cause of abnormal reaction of the patient, or of later complication, without mention of misadventure at the time of the procedure; Y92.009 Unspecified place in unspecified non-institutional (private) residence as the place of occurrence of the external cause
CPT/HCPCS: 36415; 36573; 71260; 80053; 80202; 83605; 85025; 85027; 85610; 85730; 87040; 87070; 87077; 87186; 87205; 93005; 96361; 96365; 96366; 96367; 99291

== ENCOUNTER → 2020-08-27 | Outpatient (CLI) | payer BC ==
--- NOTE | 2020-08-27 11:28 | CT ---
EXAMINATION TYPE: CT chest w con DATE OF EXAM: 08/27/2020 COMPARISON: 08/03/2020 HISTORY: empyema CT DLP: 668 mGycm Automated exposure control for dose reduction was used. CONTRAST: CT scan of the chest is performed with IV Contrast, patient injected with 100 mL of Isovue 300. FINDINGS: LUNGS: Postsurgical change. There is a large hiatal hernia. Moderate sized right pleural effusion. No pneumothorax. Left lung remains clear. MEDIASTINUM: There are no greater than 1 cm hilar or mediastinal lymph nodes. No pericardial effusi on is seen. Maximal dimension of the aorta measures 3.7 cm. Shotty lymphadenopathy noted. Main left pulmonary artery measures 2.3 cm and the right measures 1.6 cm. OTHER: Hypertrophic and degenerative change of the spine. 2 cm lesion in the left lobe of the liver stable from prior exam measuring 15 Hounsfield units likely related to a cyst. Additional hepatic dom e lesion stable, most likely related to simple cyst. There is a 1.5 cm indeterminate splenic lesion s table from prior exam. Large hiatal hernia. Subcentimeter left thyroid nodule. Left-sided PICC line n oted. IMPRESSION: 1. Moderate sized right pleural effusion. 2. Probable hepatic cysts. 3. Indeterminate splenic lesion stable from previous CT scan. However, it does not meet the criteria of a simple cyst recommend follow-up ultrasound. 4. Large hiatal hernia. 5. Subcentimeter left thyroid nodule.
== END | disposition home or self-care (01) ==
LOC: RADCTMAIN 10:00
PROVIDERS: ATTEND Internal Medicine Infectious Disease
DX: J90 Pleural effusion, not elsewhere classified (principal); K44.9 Diaphragmatic hernia without obstruction or gangrene
CPT/HCPCS: 71260; Q9967

== ENCOUNTER → 2023-03-15 | Outpatient (CLI) | payer MEDICARE, BC ==
--- NOTE | 2023-03-17 07:16 | MR ---
EXAMINATION TYPE: MR shoulder LT wo con DATE OF EXAM: 03/15/2023 COMPARISON: Outside left shoulder x-ray March 01, 2023 HISTORY: Left Shoulder pain TECHNIQUE: Multiplanar, multisequence imaging of the left shoulder is performed without contrast. FINDINGS: Rotator Cuff: Some increased signal distal supraspinatus and infraspinatus tendons deeper aspect. Sma ll articular surface tear involving supraspinatus tendon measuring 8 mm AP diameter sagittal image 8 x 4 mm transversely coronal image 14. Rotator cuff muscle bulk is preserved. Acromioclavicular Joint: Moderate narrowing with mild capsular hypertrophy. Underlying fat plane is p reserved. Type II downsloping acromion is however noted. Glenohumeral Joint: Moderate size joint effusion. No significant spurring. Labrum: Increased signal superior labrum coronal image 18 most likely consistent with degenerative te ar. Biceps Tendon: The long head of biceps is in normal location within bicipital groove. Increased linea r signal near the labral anchor coronal image 16 corresponding to sagittal image 17. Bone marrow signal: Subchondral cystic change involving the posterior lateral humeral head. Other: No additional significant abnormality is appreciated. IMPRESSION: 1. Tendinosis of the supraspinatus and infraspinatus tendons. Partial articular surface tearing of th e supraspinatus tendon. 2. Superior labral tear. 3. Partial tearing of the intracapsular portion of the long head of biceps tendon. 4. Type II downsloping acromion. Degenerative changes as detailed above.
== END | disposition home or self-care (01) ==
LOC: RADMRIMAIN 20:15
PROVIDERS: ATTEND Orthopaedic Surgery
DX: M67.814 Other specified disorders of tendon, left shoulder (principal); M75.112 Incomplete rotator cuff tear or rupture of left shoulder, not specified as traumatic; M19.012 Primary osteoarthritis, left shoulder

== ENCOUNTER 2023-06-28 05:50 | Day surgery (SDC) | payer MEDICARE, BC ==
--- NOTE | 2023-06-27 14:38 | HP ---
HISTORY AND PHYSICAL SCHEDULED DATE OF SURGERY: 06/28/2023. HISTORY OF PRESENT ILLNESS: Alexia Berrios is a 67-year-old patient, seen with progressive left shoulder pain. We discussed options for treatment. She elected to proceed with left shoulder arthroscopy. Consent was obtained. PAST MEDICAL HISTORY: Hyperlipidemia and gastroesophageal reflux disease. PAST SURGICAL HISTORY: Right knee arthroscopy and right shoulder arthroscopy. DAILY MEDICATIONS: 1. Aspirin. 2. Prilosec. 3. Rosuvastatin. ALLERGIES: 1. Dilaudid. 2. Penicillin. 3. Sulfa. SOCIAL HISTORY: She denies tobacco use. PHYSICAL EVALUATION OF THE LEFT SHOULDER: Flexion is 140 degrees, abduction is 90 degrees, external rotation is 30 degrees with weakness and tenderness along the anterolateral acromion and rotator cuff insertion area. Impingement is positive at 90 degrees. Cross-body adduction sign is positive. Drop-arm sign is positive. Distal neurovascular exam is intact. IMAGING STUDIES: Radiographs of the left shoulder revealed a type 2 acromion, severe osteoarthritis of the acromioclavicular joint, and cystic changes of the tuberosity. An MRI of the left shoulder revealed rotator cuff tear and labral tear along with a type 2 acromion and acromioclavicular joint osteoarthritis. IMPRESSION: 1. Left shoulder impingement with rotator cuff tear. 2. Left shoulder acromioclavicular joint osteoarthritis. 3. Left shoulder labral tear. 4. Hyperlipidemia. 5. Gastroesophageal reflux disease. PLAN: Left shoulder arthroscopy with rotator cuff repair, subacromial decompression, Maynor, and debridement. MMODL / IJN: [id number] /
[~2023-06-28 05:50] MED LIST: DEXAMETHASONE SOD PHOSPHATE 4 MG/ML 1 ML VIAL IV ONE; LACTATED RINGERS 1,000 ML IV SCH; ONDANSETRON 4 MG/2 ML VIAL IVP ONE
[2023-06-28] MEDS ORDERED: LACTATED RINGERS 1,000 ML IV ONE (06:13)
[2023-06-28] MEDS ORDERED: HYDROmorphone 0.5 MG/0.5 ML SYRINGE IVP PRN ×2 (06:38→07:00)
[2023-06-28] MEDS ORDERED: MIDAZOLAM 2 MG/2 ML VIAL IVP ONE (06:54)
[2023-06-28] MEDS ORDERED: MIDAZOLAM 2 MG/2 ML VIAL ONE (07:20)
[2023-06-28] MEDS ORDERED: ePHEDrine 50 MG/ML 1 ML VIAL ONE (07:20)
[2023-06-28] MEDS ORDERED: fentaNYL (PF) 50 MCG/ML 2 ML AMP ONE (07:20)
[2023-06-28] MEDS ORDERED: ROPIVACAINE 5 MG/ML 30 ML VIAL ONE (07:20)
[2023-06-28] MEDS ORDERED: LIDOCAINE 2% INJ 20 MG/ML (2 ML VIAL) ONE (07:20)
[2023-06-28] MEDS ORDERED: PROPOFOL 10 MG/ML 20 ML VIAL IV ONE (07:20)
[2023-06-28] MEDS ORDERED: hydrALAZINE HCL 20 MG/ML 1 ML VIAL ONE (07:20)
[2023-06-28] MEDS ORDERED: WATER FOR INJECTION, STERILE 10 ML VIAL IV ONE (07:20)
[2023-06-28] MEDS ORDERED: SUCCINYLCHOLINE CHLORIDE 200 MG/10 ML VIAL IV ONE (07:20)
[2023-06-28 08:49] VITALS: TEMP 97.1
--- NOTE | 2023-06-28 08:53 | P.OP ---
Date of Procedure: 06/28/23 Preoperative Diagnosis: Left shoulder impingement Postoperative Diagnosis: 1. Left shoulder rotator cuff tear 2. Left shoulder impingement 3. Left shoulder acromioclavicular joint osteoarthritis 4. Left shoulder partial long head biceps tendon tear 5. Left shoulder superficial labral tear Procedure(s) Performed: 1. Left shoulder arthroscopic rotator cuff repair 2. Left shoulder arthroscopic subacromial decompression 3. Left shoulder arthroscopic Maynor procedure 4. Left shoulder arthroscopic biceps tenotomy 5. Left shoulder arthroscopic debridement labral tear Implants: 1Arthrex 5.5 swivel lock anchor Anesthesia: GETA, regional (Interscalene block) Surgeon: Jam Devine Digital Photo Printer #1: Dano Rodrigues Estimated Blood Loss (ml): 11 Pathology: none sent Condition: stable Disposition: PACU Indications for Procedure: 67-year-old patient seen with progressive left shoulder pain. After treatment options discussed, she elected to proceed with arthroscopy. Operative Findings: See description of procedure Description of Procedure: Patient underwent an interscalene block by department of anesthesia. The patient was then taken to the operative suite. The patient underwent a general anesthetic by the department of anesthesia. The patient was placed into a lateral position and secured. There was appropriate padding of the bony prominence. Left shoulder was then prepped and draped in normal sterile orthopedic fashion. We placed the extremity in 10 pounds of longitudinal traction. A posterior incision was now made for a posterior working portal site. The trocar and cannula were inserted into the glenohumeral joint. Arthroscopy was initiated. Spinal needle was now inserted anteriorly, to ascertain the anterior working portal site. An incision was now made in that area, a trocar was inserted followed by a probe. There was some superficial tearing of the superior labrum. There was significant partial tearing long head biceps tendon. There were some grade 1 chondromalacia changes about the humeral head and glenoid fossa. I performed an arthroscopic biceps tenotomy. I debrided out the superficial labral tear. The residual labrum was probed and was found to be stable. Instruments were now removed from the glenohumeral joint. Utilizing the posterior working portal site, the trocar and cannula were inserted into the subacromial space. Arthroscopy initiated. I made an incision 2 fingerbreadths lateral to the acromion. I introduced my trocar followed by my ArthroCare ablator. I now began ablating thick subacromial bursal tissue, which exposed the undersurface of the anterior acromion. There was diminished subacromial space. There was a very prominent anterior acromion. A motorized bur was introduced and a subacromial decompression was performed. I also excised some osteophytes off the inferior aspect of the distal clavicle. The AC joint was visualized and noted to be fairly arthritic. The motorized bur was introduc ed in the anterior portal site and a Maynor procedure was performed without difficulty, decompressing the AC joint nicely. I turned my attention to the rotator cuff. There was a 1 cm distal supraspinatus rotator cuff tendon tear. I debrided the margins getting down to stable tendon tissue. The defect measured a little over a centimeter it was freely mobile over the footprint. I abraded the footprint with a motorized bur. With the assistance of Camden COUGHLIN passed 2 everted mattress sutures through good bites of rotator cuff tendon. I also passed a suture Jovan posteriorly. I punched the hole the footprint area for insertion of an anchor. All 5 limbs of suture were passed through the eyelet of a Arthrex 5.5 swivel lock anchor. I now placed the eyelet into the prepunched hole. I held in position while Camden COUGHLIN tensioned all 5 limbs of suture and deployed the anchor with good fixation noted. All residual suture limbs were now clipped. We had good compression of the tendon along the entire footprint. Instruments now removed from the portal sites. All portal sites were approximated with nylon suture. Sterile dressings were applied followed by a shoulder sling. Dano COUGHLIN assisted in this complex case. The patient was awakened, transferred to a bed, and taken to recovery in stable condition.
[2023-06-28 09:27] VITALS: RESP 16
[2023-06-28] MEDS ORDERED: HYDROcodone/APAP 7.5-325MG 1 EACH TAB ONE (09:43)
[2023-06-28] MEDS ORDERED: HYDROcodone/APAP 7.5-325MG 1 EACH TAB PO ONE (09:44)
[2023-06-28 09:58] VITALS: BP 128/81; PULSE 84
--- NOTE | 2023-06-28 15:57 | P.ANPRN ---
Procedure Note - Anesthesia - Nerve Block Performed Left Interscalene Single Time Out Performed: Yes (0653) Date of Procedure: 06/28/23 Procedure Start Time: 06:54 Procedure Stop Time: 07:00 Location of Patient: PreOp Indication: Acute Post-Operative Pain, Requested by Surgeon Specifically requested for management of pain by DrJeff: Jam Devine Sedation Type: Sedate with meaningful contact maintained Preparation: Sterile Prep Position: Supine Catheter: None Needle Types: Pajunk Needle Gauge: 21 Ultrasound used to visualize needle placement: Yes Ultrasound used to observe medication spread: Yes Injectate: 0.5% Ropivacaine (see comment for volume) (30cc) Blood Aspirated: No Pain Paresthesia on Injection Noted: No Resistance on Injection: Normal Image Stored and Saved: Yes Events: Uneventful and Well Tolerated
== END 2023-06-28 10:40 | disposition home or self-care (01) ==
LOC: OR 05:50
PROVIDERS: ATTEND Orthopaedic Surgery
DX: M75.102 Unspecified rotator cuff tear or rupture of left shoulder, not specified as traumatic (principal); M19.012 Primary osteoarthritis, left shoulder; S46.112A Strain of muscle, fascia and tendon of long head of biceps, left arm, initial encounter; S43.492A Other sprain of left shoulder joint, initial encounter; E78.5 Hyperlipidemia, unspecified; K21.9 Gastro-esophageal reflux disease without esophagitis; K44.9 Diaphragmatic hernia without obstruction or gangrene; G43.909 Migraine, unspecified, not intractable, without status migrainosus; Z98.890 Other specified postprocedural states; Z79.82 Long term (current) use of aspirin; Z79.02 Long term (current) use of antithrombotics/antiplatelets; Z79.899 Other long term (current) drug therapy; Z88.0 Allergy status to penicillin; Z88.2 Allergy status to sulfonamides; Z88.5 Allergy status to narcotic agent; Z86.711 Personal history of pulmonary embolism
CPT/HCPCS: 29826; 29827; 29824; 23405; 64415; C1894; C1713; J2250; J0330; J0360; J1100; J0690; J2405; J3010; J2795; J2704; J2001